=== PATIENT | female | born 1970 | race Caucasian/White ===

== ENCOUNTER 2017-06-02 12:40 | Emergency (ER) | payer SELFPAY ==
--- NOTE | 2017-06-02 14:52 | RAD ---
AP CHEST: Indication: Cough. Comparison: None. FINDINGS: The lungs are clear. Cardiomediastinal silhouette is normal. No acute osseous abnormality is evident . IMPRESSION: No acute cardiopulmonary abnormality. POS: [facility]
== END 2017-06-02 15:04 | disposition home or self-care (01) ==
LOC: ERS 12:40
DX: J42 Unspecified chronic bronchitis (principal); J32.9 Chronic sinusitis, unspecified; I10 Essential (primary) hypertension; F41.9 Anxiety disorder, unspecified; Z79.899 Other long term (current) drug therapy
CPT/HCPCS: 71010

== ENCOUNTER 2017-08-02 13:20 | Inpatient (IN) | payer SELFPAY ==
[2017-08-02 14:11] LABS: Hematocrit 32.2 % (36.0-47.0); Mean Platelet Volume 7.1 fL (7.4-10.4); Red Blood Cell (RBC) Count 3.48 mill/uL (4.20-5.40); White Blood Cell (WBC) Count 14.2 thou/uL (4.8-10.8)
[2017-08-02 14:13] LABS: Prothrombin Time 15.4 SEC (12.0-14.7)
[2017-08-02] MEDS ORDERED: Fentanyl 100 MCG/2 ML VIAL ONE (14:22)
[2017-08-02 14:24] LABS: Lactic Acid - Sepsis 2.5 mmol/L (0.5-2.2)
[2017-08-02 14:27] LABS: ALT (SGPT) 137 U/L (8-55); AST (SGOT) 144 U/L (5-34); Alkaline Phosphatase 214 U/L (40-150); Anion Gap 21 mmol/L (10-20); BUN (Urea Nitrogen) 80 mg/dL (7.0-18.7); Bilirubin, Total 0.7 mg/dL (0.2-1.2); CK (CPK) 28 U/L (29-168); Calc. Creatinine Clearance 0 mL/min (70-130); Calcium 7.7 mg/dL (7.8-10.44); Carbon Dioxide 23 mmol/L (22-29); Chloride 94 mmol/L (98-107); Estimated GFR-MDRD 10; Globulin 4.3 g/dL (2.4-3.5); Lipase 23 U/L (8-78); Magnesium 1.3 mg/dL (1.6-2.6); Protein, Total 7.4 g/dL (6.0-8.3)
[2017-08-02 14:31] LABS: Troponin I 0.014 ng/mL (< 0.028)
[2017-08-02 14:31] LABS: Sodium 139 mmol/L (135-148)
[2017-08-02 14:32] LABS: Mode NRBM; Modified Allen's Test POSITIVE
[2017-08-02] MEDS ORDERED: Potassium Chloride 20 MEQ/100 ML PREMIX BAG ONE (14:38)
[2017-08-02] MEDS ORDERED: Potassium Chloride 20 MEQ TAB ONE (14:38)
[2017-08-02 14:39] LABS: Band 19 % (5-11); Hypochromia SLIGHT = 6-15 cells (100X) (0-5/hpf); Metamyelocyte 1 % (0-0); Neutrophil 69 % (42-75); Toxic Granulation SLIGHT; Vacuoles SLIGHT
[2017-08-02] MEDS ORDERED: EPINEPHrine 1 MG/10 ML Abboject SYRINGE ONE (14:41)
[2017-08-02] MEDS ORDERED: Heparin 10,000 UNITS/ 10 ML VIAL SLOW IVP SCH (15:15)
[2017-08-02] MEDS ORDERED: Heparin 25,000 units/D5W 500 ML IV SCH (15:15)
[2017-08-02] MEDS ORDERED: Heparin 25,000 units/D5W 500 ML ONE (15:29)
[2017-08-02 15:37] LABS: Bilirubin Negative (Negative); Blood, Urine Large (Negative); Glucose, Urine (Dipstick) Negative (Negative); Ketone, Urine Negative (Negative); Nitrite Negative (Negative); Protein, Urine (Dipstick) 100 mg/dL (Neg-Trace)
[2017-08-02 15:39] LABS: Bacteria/HPF 4+ HPF (None Seen); Hyaline Casts/LPF 0-3 HYALINE CAST LPF (0-3 Hyaline); RBC/HPF GREATER THAN 50-TNTC HPF (0-3); WBC/HPF 21-50 HPF (0-3)
--- NOTE | 2017-08-02 15:39 | RAD ---
FRONTAL VIEW CHEST: Date: 08/02/17 COMPARISON: 06/02/17. INDICATION: Shortness of breath. FINDINGS: There is shallow depth of inspiration with bibasilar pleural and parenchymal densities. Cardiomediast inal silhouette is accentuated. No obvious pneumothorax. IMPRESSION: Bibasilar densities indicating pleural fluid with adjacent atelectasis and/or pneumonia. Recommend fo llow-up to resolution. POS: [facility]
[2017-08-02] MEDS ORDERED: Norepinephrine 8 MG/0.9% NS 250 ML ONE (15:42)
--- NOTE | 2017-08-02 15:52 | RAD ---
FRONTAL VIEW CHEST: Date: 08/02/17 COMPARISON: Earlier same date. CLINICAL HISTORY: Central line placement. FINDINGS: Placement of right internal jugulovenous catheter with tip overlying the right atrium. No obvious pos tprocedural pneumothorax is seen. Lungs are hypoinflated with bibasilar patchy densities. Cardiomedia stinal silhouette and pulmonary vasculature are prominent. IMPRESSION: 1. Placement of right IJ catheter with tip overlying right atrium. 2. Patchy bibasilar densities. 3. No postprocedural pneumothorax visualized. POS: [facility]
[2017-08-02] MEDS ORDERED: cefTRIAXone\\ROCEPHIN 2 GM in Sodium Chloride 0.9% 100 ML IVPB SCH ×2 (16:00→16:15)
[2017-08-02] MEDS ORDERED: Azithromycin 500 MG VIAL ONE (16:11)
[2017-08-02] MEDS ORDERED: Norepinephrine 8 MG/250 ML BAG IVPB PRN (16:12)
[2017-08-02] MEDS ORDERED: Azithromycin 500 MG in Sodium Chloride 0.9% 250 ML 250 ML IVPB SCH (16:15)
[2017-08-02] MEDS ORDERED: Potassium Chloride 20 MEQ in Sodium Chloride 0.9% 250 ML 250 ML IVPB SCH (16:15)
[2017-08-02 17:40] LABS: Troponin I 0.011 ng/mL (< 0.028)
[2017-08-02] MEDS ORDERED: Ondansetron ODT 4 MG TAB SL PRN (17:48)
[2017-08-02] MEDS ORDERED: Sodium Chloride 0.9% 1,000 ML IV SCH (17:48)
[2017-08-02] MEDS ORDERED: Ondansetron HCl/PF 4 MG/2 ML Vial IVP PRN ×2 (17:48→17:55)
[2017-08-02] MEDS ORDERED: Acetaminophen 325 MG TAB PO PRN (17:48)
[2017-08-02] MEDS ORDERED: Benzonatate 100 MG CAP PO PRN (17:55)
[2017-08-02] MEDS ORDERED: Diabetic Tussin 200 MG/10 ML UDCUP PO PRN (17:55)
[2017-08-02] MEDS ORDERED: Ondansetron ODT 4 MG TAB PO PRN (17:55)
[2017-08-02] MEDS: Sodium Chloride 0.9% 1,000 ML IV SCH (18:43)
[2017-08-02] MEDS ORDERED: FLU VACC QS2017-18 36 mo. & older 0.5 ML SYRINGE IM ONE (18:45)
--- NOTE | 2017-08-02 19:00 | HP ---
DATE OF ADMISSION: 08/02/2017 PRIMARY CARE PROVIDER: Tamara huitron. CHIEF COMPLAINT: Cough, shortness of breath and falls. HISTORY OF PRESENT ILLNESS: This is a 47-year-old female who presented to [facility] Emergency Department complaining of approximately 2-3 day history of increasing rose rtness of breath, subjective fever, general weakness, and falls x2. The patient states that her symp toms began in last 72 hours, but was taking ibuprofen for pain relief and fever. The patient admitte d to shortness of breath and cough that was nonproductive. The patient denied any hemoptysis, travel history or family members with similar symptoms. 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 The patient denies receiving influenza or pneumonia vaccinations. The patient states she has had general weakness, decreased oral intake, but denied vomiting or diarrhea. The patient i s accompanied by her parents, who corroborated patient's story. The patient apparently lives with he r parents at which point they noticed her falling on two occasions, striking her head after falling o ut of the bed and falling in the bathroom. The patient was not noted with loss of consciousness, but complained of pain at the site where she struck her head. The patient denies any unilateral weaknes s, difficulty with speech or swallowing. In the emergency room, patient underwent extensive evaluati on including chest imaging showing questionable bibasilar infiltrates concerning for pneumonia. The patient was also noted with hypotension and concern for sepsis with elevated respiratory rate, hypoxe chris and infiltrates concerning for pneumonia. The patient received aggressive intervention including Rocephin, Zithromax, intravenous normal saline x3 liters in addition to vasopressor support with Lev ophed. The patient also received bronchodilator therapy, IV fentanyl, and potassium supplementation. The patient also underwent general evaluation after concern for potential pulmonary embolus and rec eived heparin infusion. The patient denies any lower extremity asymmetric swelling, travel history o r prominent chest pain. The patient was transferred to the Critical Care Unit for further sepsis wor kup and treatment. PAST MEDICAL HISTORY: 1. Hypertension, on antihypertensive regimen. 2. Anxiety. PAST SURGICAL HISTORY: 1. Status post endometrial ablation. 2. Status post tonsillectomy. CURRENT MEDICATIONS: Lisinopril/HCTZ 20/25 mg 1 tab p.o. daily and ibuprofen daily. ALLERGIES: No known drug allergies. FAMILY HISTORY: Positive for hypertension. SOCIAL HISTORY: Patient resides in the [place], [place] area with her parents. Works in a daycare sett ing. No current alcohol, tobacco or illicit drug use. REVIEW OF SYSTEMS: The following complete review of systems was negative, unless otherwise mentioned in the HPI or below: Constitutional: Weight loss or gain, ability to conduct usual activities. Skin: Rash, itching. Eyes: Double vision, pain. ENT/Mouth: Nose bleeding, neck stiffness, pain, tenderness. Cardiovascular: Palpitations, dyspnea on exertion, orthopnea. Respiratory: Shortness of breath, wheezing, cough, hemoptysis, fever or night sweats. Gastrointestinal: Poor appetite, abdominal pain, heartburn, nausea, vomiting, constipation, or diarr hea. Genitourinary: Urgency, frequency, dysuria, nocturia. Musculoskeletal: Pain, swelling. Neurologic/Psychiatric: Anxiety, depression. Allergy/Immunologic: Skin rash, bleeding tendency. Otherwise negative except as stated per HPI. PHYSICAL EXAMINATION: VITAL SIGNS: From the emergency room, blood pressure 88/56, pulse 102, respiratory rate 35, temperat ure 97.6 degrees Fahrenheit, O2 saturation 87% on room air. GENERAL APPEARANCE: This is a 47-year-old female, anxious appearing on current BiPAP nonin vasive mechanical ventilation. HEENT: Pupils are equal, round, and reactive to light and accommodation. Extraocular muscles are in tact. No scleral icterus, no conjunctival injection. Nares patent. OP is clear. Oral mucosa dry. NECK: Supple, no cervical adenopathy, no thyromegaly, no carotid bruits, no JVD appreciated. Cervic al spine with full active and passive range of motion. No meningeal signs appreciated. CHEST: Diminished breath sounds in the bases bilaterally. CARDIOVASCULAR: S1 and S2 with tachycardia. ABDOMEN: Obese, soft, nontender, nondistended. Bowel sounds are positive in all four quadrants. Th ere is no hepatosplenomegaly, no abdominal bruits, no rebound or guarding appreciated. Landmarks are difficult to palpate. EXTREMITIES: Warm and dry with fair turgor. Nonpitting edema bilaterally. Pulses palpable distally at the dorsalis pedis, posterior tibial, and popliteal arteries bilaterally. Capillary refill less than 2 seconds. NEUROLOGIC: Cranial nerves II-XII are grossly intact. No focal or lateralizing signs are appreciate d. PERTINENT LABORATORY DATA AND X-RAY FINDINGS: Sodium 135, potassium 2.9, chloride 94, CO2 23, anion gap 21, BUN 80, creatinine 4.89, estimated GFR of 10, glucose 88. Lactic acid level 2.5, calcium 7.7 , magnesium 1.3, AST 144, ALT 137, total bilirubin 0.7, alkaline phosphatase 214, total CK of 28. Tr oponin negative x2. BNP 214. Albumin 3.1, lipase 23. CBC showed white blood cell count of 14.2, he moglobin 11, hematocrit 32, platelet count 285 with 69% neutrophils, 19% bands. PT 15.4, INR 1.2. A BG dated 08/02/2017 at 14:30 p.m. showed pH 7.35, pCO2 of 38.7, pO2 19.4, bicarbonate 20.8, O2 satura tion 99% on 100% FiO2 by nonrebreather. Urinalysis showed positive blood, moderate leukocyte esteras e with greater than 50 to too numerous to count rbc's per high power field and 21-50 wbc's per high p ower field, 4+ bacteria noted. Portable chest x-ray dated 08/02/2017 showed bibasilar pleural fluid with atelectasis/questionable pneumonia. EKG dated 08/02/2017 by my interpretation shows sinus mecha nism with heart rates in the 90s. Normal R-wave progression noted in the precordial leads. Normal a xis. T-wave inversion noted in lead III and AVF. ASSESSMENT AND PLAN: 1. Severe sepsis. Patient will be admitted to the critical care unit. We will continue general sep sis protocol. IV fluids with normal saline at 125 mL per hour. Continue empiric coverage with cefep karen 1 gram IV q.12 hours with Levaquin 750 mg IV q.24 hours. Patient received Rocephin and Zithromax in the emergency room. Suspected pulmonic source currently; however, we will await final urine cult ure results. Continue serial lactate assessment. We will consult Critical Care Service per protocol . 2. Acute hypoxemic respiratory failure. Suspect secondarily to underlying pneumonia and #1. Initia lly treated with 100% FiO2 with nonrebreather, transitioning to bilevel positive airway pressure kim nvasive mechanical ventilation. We will attempt to deescalate oxygen supplementation with nasal светлана teddy at 3-5 liters per nasal cannula. Continue pulmonary supportive measures. DuoNebs q.4 hours p.r. n. 4. Acute kidney injury. Suspect multifactorial given volume depletion sepsis syndrome, ongoing dimple nopril, and NSAID use. We will continue aggressive IV fluid hydration. Avoid nephrotoxic agents and contrast media and repeat creatinine in the a.m. 5. Hypokalemia. Continue potassium supplementation and monitor closely. Repeat potassium level in the a.m. 6. Transaminitis secondary to septic shock. Repeat LFTs in the a.m. Anticipate resolution with andrea atment of underlying sepsis. 7. Chronic normocytic anemia. No current evidence to suggest acute blood loss. Repeat CBC in the a .m. 8. Prophylaxis. Sequential compression devices while in bed. Pepcid 20 mg IV q.12 hours. Update i nfluenza and pneumonia vaccination prior to discharge. 9. Code status is FULL. Surrogate medical decision maker is the patient's mother.
[2017-08-02] MEDS: Lorazepam 1 MG TAB PO PRN (19:40)
[2017-08-02] MEDS: Cefepime 1 GM, Admixture Fee 1 EACH in Sterile Water 10 ML SLOW IVP SCH (19:40)
[2017-08-02] MEDS ORDERED: Magnesium 2 GM/NS 0.9% 50 ML 2 GM in Premix Bag 1 BAG IVPB SCH (19:45)
[2017-08-02] MEDS ORDERED: Potassium Chloride 40 MEQ in Premix Bag 1 BAG IVPB SCH (19:45)
[2017-08-02] MEDS ORDERED: diphenhydrAMINE 50 MG/ML VIAL IVP SCH (20:30)
[2017-08-02] MEDS ORDERED: Metoclopramide HCl 10 MG/2 ML VIAL IVP SCH (20:30)
[2017-08-02] MEDS ORDERED: Cefepime 2 GM VIAL IVPB SCH (21:00)
[2017-08-02] MEDS: Famotidine/PF 20 mg/2ml Vial SLOW IVP SCH (21:00)
[2017-08-02] MEDS: Oseltamivir 75 MG CAP PO SCH (21:09)
--- NOTE | 2017-08-02 21:39 | ULT ---
RENAL ULTRASOUND 08/02/17 COMPARISON: None. HISTORY: Acute kidney injury. TECHNIQUE: Multiplanar trevino scale sonographic imaging of the kidneys and urinary bladder obtained. FINDINGS: Left kidney measures 11.7 5.6 x 6.3 cm and right kidney measures 12.6 x 6.8 x 6.9 cm. Urinary bladde r is empty and contains a Medina catheter. No renal mass, hydronephrosis, or renal stone seen on the l eft. There is a vague hypoechoic lesion in the mid pole of the right kidney measuring 2.7 x 1.7 cm, which may represent a cyst but is incompletely characterized on this exam secondary to body habitus. IMPRESSION: No hydronephrosis noted on either side. Question right renal cyst, incompletely assessed. Thus, a fol lowup ultrasound in 3-6 months is advised to document stability. POS: [facility]
--- NOTE | 2017-08-03 00:32 | CON ---
DATE OF SERVICE: 08/02/2017 SERVICE: Pulmonary Medicine. REASON FOR CONSULTATION: ICU patient. HISTORY OF PRESENT ILLNESS: The patient is a very pleasant 47-year-old white female. For the past 3 months, she has had a cough. She brings up green sputum. About 2 months ago, she went in for evalu ation. She was put on some antibiotic. Her green sputum cleared for a couple of days. That being s aid, she had recurrence of that. This was smoldering along until about 2 days prior to admission whe n she started having onset of a headache, myalgia, arthralgia, fevers, and the cough got worse. She got increasingly short-winded. She presented to the emergency department with low blood pressure. S he got 4 liters of fluid and had persistently low blood pressures. As such, she ended up getting sta rted on a little bit Levophed after central line was placed. At this point, she started to feel sterling le bit better. She was placed on BiPAP transiently, but did not tolerate this therapy in any form an d is currently on hold. PAST MEDICAL HISTORY: 1. Hypertension. 2. Anxiety disorder. PAST SURGICAL HISTORY: 1. Endometrial ablation. 2. Tonsillectomy. ALLERGIES: No known drug allergies. MEDICATIONS: List of her inpatient medications were reviewed. Multiple of updates were made. FAMILY HISTORY: Noncontributory. SOCIAL HISTORY: The patient lives in [place], [place] with her parents. She works in a daycare. She h as no alcohol, tobacco or illicit drug usage significant. She has no exposure to chemicals, dust, as bestos or tuberculosis. REVIEW OF SYSTEMS: General, head, ears, eyes, nose, throat, cardiovascular, respiratory, GI, , mus culoskeletal, neurologic and skin is negative except as mentioned in the HPI. PHYSICAL EXAMINATION: VITAL SIGNS: Afebrile, pulse 102, blood pressure 108/68, respirations 31, saturation 100% on room ai r. GENERAL: The patient is awake and alert, in no apparent distress. LUNGS: Decent air entry. Rhonchi are present. I hear some dependent crackles. No prolonged expira tory phase or wheezing is appreciated. HEART: Normal rate, regular. ABDOMEN: Soft, nontender, nondistended, bowel sounds positive. MUSCULOSKELETAL: No cyanosis or clubbing. There is 1+ pitting in the bilateral lower extremities. NEUROLOGIC: Grossly nonfocal. LABORATORY DATA: WBC 14.2, hemoglobin 10.6, platelets 285,000. Band counts are 19%. INR 1.2. A pH 7.35, pCO2 38, pO2 194 on a nonrebreather at that time. Potassium 2.9. Creatinine 4.89, BUN 80. L actate is up trending to 4.2. BNP 213. Cardiac enzymes are negative x2 and actually down trending. AST and ALT are slightly elevated. Alkaline phosphatase is 214. Urine red blood cells and white bl ood cells are elevated. There is moderate leukocyte esterase, but negative nitrites. There is mild proteinuria. Influenza A and B is unremarkable. IMAGING: Chest x-ray demonstrates a right IJ central venous catheter is in good position. Cardiac s ilhouette is likely normal. Lung volumes are fairly small. There is possible left pleural parenchym al abnormality. There is also a plate of atelectasis in the left mid lung zone. ASSESSMENT: 1. Acute hypoxic respiratory failure. 2. Septic shock. 3. Community-acquired pneumonia, possible. 4. Viral prodrome. 5. Acute kidney injury. 6. Hypokalemia. 7. Elevated liver function studies. 8. Urinary tract infection, possible. PLAN: We will get an ultrasound of the kidneys. Continue Levophed as tolerated. Empiric antibiotic s will be continued. The choice of cefepime and Levaquin should cover most of our organisms that we need to at this time. I am going to discontinue anything designed to suppress cough. Echocardiogram will be performed. We will place Medina catheter Pulmonary Critical Care will continue to follow ve ry closely during this hospital stay as the patient is very likely get worse before improving. Potas sium will be aggressively replaced.
[2017-08-03] MEDS: Acetaminophen 500 MG TAB PO PRN (01:15)
[2017-08-03] MEDS: Sodium Chloride 0.9% 1,000 ML IV SCH ×3 (01:16→17:36)
[2017-08-03] MEDS: Lorazepam 1 MG TAB PO PRN (03:26)
[2017-08-03 05:23] LABS: ALT (SGPT) 264 U/L (8-55); AST (SGOT) 292 U/L (5-34); Alkaline Phosphatase 223 U/L (40-150); Anion Gap 19 mmol/L (10-20); BUN (Urea Nitrogen) 69 mg/dL (7.0-18.7); Bilirubin, Total 1.2 mg/dL (0.2-1.2); Calc. Creatinine Clearance 30 mL/min (70-130); Calcium 6.8 mg/dL (7.8-10.44); Carbon Dioxide 17 mmol/L (22-29); Chloride 107 mmol/L (98-107); Estimated GFR-MDRD 15; Globulin 3.7 g/dL (2.4-3.5); Magnesium 1.6 mg/dL (1.6-2.6); Protein, Total 6.4 g/dL (6.0-8.3)
[2017-08-03 05:24] LABS: ALT (SGPT) 266 U/L (8-55); AST (SGOT) 294 U/L (5-34); Alkaline Phosphatase 231 U/L (40-150); Bilirubin, Total 1.2 mg/dL (0.2-1.2); Protein, Total 6.5 g/dL (6.0-8.3)
[2017-08-03 06:23] LABS: Band 18 % (5-11); Hematocrit 29.1 % (36.0-47.0); Mean Platelet Volume 6.8 fL (7.4-10.4); Metamyelocyte 1 % (0-0); Neutrophil 76 % (42-75); Red Blood Cell (RBC) Count 3.08 mill/uL (4.20-5.40); White Blood Cell (WBC) Count 15.2 thou/uL (4.8-10.8)
[2017-08-03] MEDS ORDERED: Midazolam HCl 2 mg/2 ml Vial ONE (08:36)
[2017-08-03] MEDS ORDERED: Propofol 1,000 MG/100 ML VIAL IV ONE (08:48)
[2017-08-03] MEDS ORDERED: Lorazepam 2 MG/ML VIAL ONE (09:04)
--- NOTE | 2017-08-03 09:15 | RAD ---
1 VIEW CHEST: Date: 08/03/17 COMPARISON: 08/02/17. HISTORY: Respiratory distress. Endotracheal tube placement. COMPARISON: None. FINDINGS: Endotracheal tube terminates less than 1.0 cm above the gogo. Retraction is recommended. Nasogastri c tube extends beyond the diaphragm. Distal tip is not seen. Stable right-sided catheter. Parenchymal change in lung bases noted. Atelectasis is suspected. Superimposed infiltrate cannot be excluded. No pneumothorax. IMPRESSION: Endotracheal tube as above. Retraction is recommended. CODE T. POS: [facility]
[2017-08-03] MEDS: Cefepime 1 GM, Admixture Fee 1 EACH in Sterile Water 10 ML SLOW IVP SCH (10:02)
[2017-08-03] MEDS ORDERED: Lacri-Lube Opth Oint 3.5 GM TUBE EA EYE PRN (10:03)
[2017-08-03] MEDS ORDERED: Sedation Protocol FS SCH (10:03)
[2017-08-03] MEDS ORDERED: Magnesium Sulfate 2 GM in Sodium Chloride 0.9% 100 ML IVPB SCH (10:15)
[2017-08-03] MEDS ORDERED: Magnesium 2 GM/NS 0.9% 50 ML 2 GM in Premix Bag 1 BAG IVPB SCH (10:30)
[2017-08-03] MEDS ORDERED: Lorazepam 2 MG/ML VIAL SLOW IVP PRN (10:32)
[2017-08-03] MEDS ORDERED: DISCONTINUE PREVIOUS NARCOTIC PAIN MEDICATIONS AND BENZODIAZEPINES FS SCH (10:32)
[2017-08-03] MEDS ORDERED: Morphine 4 MG/ML VIAL IV PRN (10:34)
--- NOTE | 2017-08-03 10:36 | PRG ---
DATE OF SERVICE: 08/03/2017 SERVICE: Pulmonary Medicine. INTERVAL HISTORY: The patient did poorly overnight. She had increasing work of breathing. She has an acidosis. She is supposed to be compensating for that, but based on ABG this morning, she was not . She had visible respiratory distress. She is taking very small breaths and had one-word dyspnea. PHYSICAL EXAMINATION: VITAL SIGNS: Afebrile with T-max 99.2, pulse 90, blood pressure 98/55, respirations 19, saturation 9 0% on 40% FiO2 and PEEP of 5. HEENT: Normocephalic, atraumatic. Sclerae are white. Conjunctivae pink. Oral and nasal mucosa is dry. HEART: Normal rate, regular. ABDOMEN: Soft, nontender, and nondistended. Bowel sounds are soft. Distended. Bowel sounds are hy poactive. GENITOURINARY: Medina catheter in place. NEUROLOGIC: Grossly nonfocal. LABORATORY DATA: WBC 15.2, hemoglobin 9.3, and platelets 201,000. Neutrophil count is 76% with 18% bands. Band count is roughly stable. INR 1.2. A pH 7.35, pCO2 39, pO2 194 on a nonrebreather at th at time. AST and ALT are roughly stable, alkaline phosphatase is stable at 231. Lactate is clearing to 2.5. Cortisol level is 23. Lipase was previously unremarkable. Cardiac enzymes negative x1. C reatinine down trending to 3.26. BUN 69. Anion gap is 19 and slowly improving, bicarbonate 17. Devon robiology includes urine culture is growing E. coli, blood cultures x2 are negative to date. Influen za A and B is negative, but respiratory virus panel is currently pending. IMAGIN. Ultrasound of the kidneys demonstrates no evidence for hydronephrosis. There is a question of a renal cyst. 2. Chest x-ray demonstrates interval intubation of the patient. Endotracheal tube was directed towa rds the right mainstem bronchus. This has subsequently been retracted. Small lung volumes are evide nt. There is a plate of atelectasis and pleural parenchymal opacification in the left lower lobe. T he right side has a possible effusion there. Right-sided IJ is in good position. An enteric cathete r courses well below the level of the diaphragm. ASSESSMENT: 1. Acute hypoxic respiratory failure. 2. Septic shock. 3. Community-acquired pneumonia. 4. Viral prodrome. 5. Acute kidney injury. 6. Elevated liver function studies. 7. Urinary tract infection secondary to Escherichia coli. PLAN: We will continue our empiric antibiotics directed at lung and pathology. The patient is fa iling to compensate for metabolic acidosis. As such, I will be intubating her. She has a very prolo nged expiratory phase, so we will start her on some nebulized medications and steroids. Her kidney i njury and end-organ damage is starting to clear. As such, I am hopeful that we are going to make a f ull recovery. CRITICAL CARE TIME: 45 minutes, unbundled from procedures.
[2017-08-03] MEDS: Oseltamivir 75 MG CAP PO SCH ×2 (10:44→20:59)
[2017-08-03] MEDS: Norepinephrine 8 MG/0.9% NS 250 ML IVPB SCH ×2 (10:44→23:53)
[2017-08-03] MEDS: Propofol 1,000 MG/100 ML VIAL IV PRN ×4 (11:46→22:37)
[2017-08-03 12:15] LABS: Oxyhemoglobin 93.8 % (94.0-97.0); Sodium 142 mmol/L (135-148)
[2017-08-03 12:16] LABS: Mode 3LNC; Modified Allen's Test POSITIVE
[2017-08-03 13:11] LABS: Oxyhemoglobin 92.6 % (94.0-97.0); Sodium 143 mmol/L (135-148); Vent YES
[2017-08-03 13:17] LABS: Mechanical Tidal Volume 430 ml; Pressure Support 19 cmH2O
[2017-08-03 13:18] LABS: Mode SIMV/PSV
[2017-08-03] MEDS: Fentanyl 20 MCG/ML 250 ML IVPB SCH (14:01)
--- NOTE | 2017-08-03 15:27 | PDOC.PN ---
- Subjective Encounter Start Date: 08/03/17 Encounter Start Time: 15:25 Subjective: f/u for severe sepsis with shock and acute resp failure now on mech vent. -: Intubated this am and requiring heavy sedation. Receiving Cefepime and -: Levaquin. - Objective Resuscitation Status: Resuscitation Status FULL:Full Resuscitation Vital Signs & Weight: Vital Signs (12 hours) Temp Pulse Resp BP Pulse Ox 08/03/17 14:00 23 H 08/03/17 12:30 87 94/56 L 08/03/17 12:00 99.0 F 23 H 92 L 08/03/17 10:05 24 H 08/03/17 10:00 24 H 08/03/17 07:39 99.2 F 93 37 H 94 L 08/03/17 07:00 99.2 F 08/03/17 04:00 98.7 F Weight Weight 185 lb 3.013 oz Most Recent Monitor Data Heart Rate from ECG 93 NIBP 91/50 NIBP BP-Mean 60 Respiration from ECG 22 SpO2 94 I&O: 08/02/17 08/03/17 08/04/17 06:59 06:59 06:59 Intake Total 1852 1521 Output Total 2290 1060 Balance -438 461 Result Diagrams: 08/03/17 04:30 08/03/17 04:30 Additional Labs: Microbiology 08/02/17 16:23 Nasal swab Influenza Types A,B Direct EIA - Final 08/02/17 16:18 Venous blood - Right Hand Blood Culture - Preliminary Specimen has been received and culture in progress. No Growth to date. 08/02/17 14:48 Urine clean catch Urine Culture - Preliminary Escherichia coli 08/02/17 13:45 Venous blood - Right Arm Blood Culture - Preliminary Specimen has been received and culture in progress. No Growth to date. Laboratory Tests 08/02/17 08/02/17 08/03/17 13:45 17:49 04:30 Hgb 10.6 L Neutrophils % (Manual) 69 Band Neuts % (Manual) 19 H Lactic Acid 4.2 H* AST 292 H ALT 264 H Alkaline Phosphatase 223 H Cortisol 08/03/17 08/03/17 08/03/17 04:30 04:30 04:30 Hgb Neutrophils % (Manual) 76 H Band Neuts % (Manual) 18 H Lactic Acid 2.5 H AST ALT Alkaline Phosphatase Cortisol 23.50 Radiology Reviewed by me: Yes (PCXR - no acute infiltrate, ETT in place) EKG Reviewed by me: Yes (Tele - SR in 's) Phys Exam - Physical Examination sedate on mech ventilation ETT in place HEENT: oral pharynx no lesions Neck: no JVD, supple diminished in bases Cardiovascular: RRR Gastrointestinal: soft, non-tender, no distention, positive bowel sounds Musculoskeletal: pulses present, edema present Skin: normal turgor, cap refill <2 seconds Deviation from normal: Medina with pal urine Dx/Plan (1) Severe sepsis with acute organ dysfunction Code(s): A41.9 - SEPSIS, UNSPECIFIED ORGANISM; R65.20 - SEVERE SEPSIS WITHOUT SEPTIC SHOCK Status: Acute Comment: Suspected PNA and Ucx showing E. coli, continue Cefepime and Levaquin, sepsis protocol, await final cx results (2) Acute respiratory failure with hypoxia Code(s): J96.01 - ACUTE RESPIRATORY FAILURE WITH HYPOXIA Status: Acute Comment: Requiring mech vent, wean as clinically indicated, Duonebs, Solumedrol (3) RENITA (acute kidney injury) Code(s): N17.9 - ACUTE KIDNEY FAILURE, UNSPECIFIED Status: Acute (4) Transaminitis Code(s): R74.0 - NONSPEC ELEV OF LEVELS OF TRANSAMNS & LACTIC ACID DEHYDRGNSE Status: Acute Comment: Suspect due to septic shock, follow LFT trend (5) Lactic acidosis Code(s): E87.2 - ACIDOSIS Status: Acute Comment: Slow improvement with sepsis mgmt, continue tx as outlined above (6) Normocytic anemia Code(s): D64.9 - ANEMIA, UNSPECIFIED Status: Chronic Comment: Stable currently, continue serial H/H monitoring - Plan plan discussed w/ family, continue antibiotics, social security specialist, respiratory therapy, DVT proph w/SCDs Continue SIMV and wean as clinically indicated -: Continue Cefepime and Levaquin -: CCU sedation protocol -: Continue Solumedrol 40mg IV daily -: AM lab: CMP, CBC, ABG * PCXR in am
[2017-08-03] MEDS: Famotidine/PF 20 mg/2ml Vial SLOW IVP SCH (20:59)
[2017-08-03] MEDS ORDERED: Sodium Chloride 0.9% 1,000 ML IV SCH (22:00)
--- NOTE | 2017-08-03 23:50 | OP ---
DATE OF SERVICE: 08/03/2017 SERVICE: Pulmonary Medicine. PROCEDURE: Emergent endotracheal intubation. CONSENT: Procedure was performed emergently because of clinical deterioration and respiratory failur e. STAFF PHYSICIAN: Angel Luis Canchola M.D. MEDICATIONS USED: 1. Versed 2 mg IV push. 2. Etomidate 40 mg IV push. PREPROCEDURE DIAGNOSES: 1. Septic shock. 2. Respiratory failure. POSTPROCEDURE DIAGNOSES: 1. Septic shock. 2. Respiratory failure. DESCRIPTION OF PROCEDURE: Vital sign monitoring was accomplished by noninvasive hemodynamic monitori ng, pulsoximetry, and telemetry. In the supine position, the patient was preoxygenated with bag valve mask ventilation and maintain wi th saturations of 100%. Following induction of anesthesia, a #3 GlideScope was inserted through the mouth offering clear identification of the posterior oropharynx and laryngeal structures with a grade I view. An endotracheal tube was visualized passing through the vocal cords. Placement was confirm ed by condensation in the endotracheal tube, colorimetric capnography, and by axillary chest ausculta tion. The endotracheal tube was secured at 22 cm, measured at the teeth. The patient was placed on mechanical ventilation with good return of volumes. Post-procedure x-ray revealed that the endotrach eal tube was just barely deep directed towards the right main stem bronchus. It was subsequently ret racted by 1 to 2 cm. ESTIMATED BLOOD LOSS: None. COMPLICATIONS: None.
[2017-08-04] MEDS: Acetaminophen 500 MG TAB PO PRN ×2 (01:28→15:28)
[2017-08-04] MEDS: Sodium Chloride 0.9% 1,000 ML IV SCH (01:48)
[2017-08-04] MEDS: Propofol 1,000 MG/100 ML VIAL IV PRN ×2 (04:24→18:03)
[2017-08-04 04:42] LABS: Anion Gap 18 mmol/L (10-20); BUN (Urea Nitrogen) 61 mg/dL (7.0-18.7); Calc. Creatinine Clearance 28 mL/min (70-130); Carbon Dioxide 15 mmol/L (22-29); Chloride 113 mmol/L (98-107); Estimated GFR-MDRD 15
[2017-08-04 04:43] LABS: ALT (SGPT) 307 U/L (8-55); AST (SGOT) 404 U/L (5-34); Alkaline Phosphatase 241 U/L (40-150); Bilirubin, Direct 1.3 mg/dL (0.1-0.3); Bilirubin, Total 1.7 mg/dL (0.2-1.2); Protein, Total 6.1 g/dL (6.0-8.3)
[2017-08-04] MEDS ORDERED: Dextrose 5 % And 0.9 % NaCl 1,000 ML IV SCH (05:00)
[2017-08-04 05:01] LABS: Band 34 % (5-11); Dohle Bodies SLIGHT; Hematocrit 27.2 % (36.0-47.0); Mean Platelet Volume 6.7 fL (7.4-10.4); Metamyelocyte 6 % (0-0); Myelocyte 1 % (0-0); Neutrophil 52 % (42-75); Red Blood Cell (RBC) Count 2.84 mill/uL (4.20-5.40); White Blood Cell (WBC) Count 16.5 thou/uL (4.8-10.8)
[2017-08-04] MEDS ORDERED: Dextrose 5% in Water 1,000 ML IV PRN (05:01)
[2017-08-04] MEDS ORDERED: Dextrose 50% Abboject 50 ML SYRINGE IVP PRN (05:01)
[2017-08-04] MEDS ORDERED: Dextrose 50% Abboject 50 ML SYRINGE ONE (05:02)
[2017-08-04] MEDS: Oseltamivir 75 MG CAP PO SCH (08:40)
[2017-08-04] MEDS: Cefepime 1 GM, Admixture Fee 1 EACH in Sterile Water 10 ML SLOW IVP SCH (08:40)
[2017-08-04] MEDS ORDERED: Vasopressin 40 UNIT, Admixture Fee 1 EACH in Sodium Chloride 0.9% 100 ML IV SCH (09:45)
[2017-08-04] MEDS ORDERED: Sodium Bicarb 50 MEQ/50 ML Abboject 8.4% SYRINGE ONE ×2 (09:59→10:04)
[2017-08-04] MEDS: Sodium Bicarbonate 75 MEQ in Dextrose 5% in Water 1,000 ML IV SCH ×4 (10:50→21:15)
[2017-08-04] MEDS: Norepinephrine 8 MG/0.9% NS 250 ML IVPB SCH ×3 (10:54→21:55)
--- NOTE | 2017-08-04 11:25 | RAD ---
PORTABLE SUPINE FRONTAL CHEST RADIOGRAPH: 08/04/2017 HISTORY: Increasing oxygen requirements. Intubated patient. COMPARISON: 08/03/2017 FINDINGS: Stable nasogastric tube and right-sided vascular catheter. Endotracheal tube in place, terminating a t the level of the clavicular heads. Supine imaging limits assessment for pneumothorax. There is in creased linear density in the left lung base with probable left pleural fluid. There is dense opacit y in the region of the right middle and right lower lobe, suggesting volume loss/consolidation and pl eural fluid. Aeration has slightly worsened within the right lung base when compared to the prior ex am. IMPRESSION: 1. Lines and tubes as above. 2. Bibasilar pleural and parenchymal opacity, right greater than left, worsened as above. POS: [facility]
[2017-08-04 11:27] LABS: Anion Gap 15 mmol/L (10-20); BUN (Urea Nitrogen) 63 mg/dL (7.0-18.7); Calc. Creatinine Clearance 24 mL/min (70-130); Carbon Dioxide 19 mmol/L (22-29); Chloride 112 mmol/L (98-107); Estimated GFR-MDRD 13
[2017-08-04] MEDS ORDERED: Calcium Chloride 1 GM/10 ML Abboject SYRINGE ONE (12:50)
[2017-08-04] MEDS ORDERED: Calcium Chloride 1 GM/10 ML Abboject SYRINGE IVP SCH (13:30)
[2017-08-04 13:58] LABS: Mechanical Tidal Volume 430 ml; Modified Allen's Test NOT DONE; Pressure Support 10 cmH2O; Sodium 141 mmol/L (135-148); Vent YES
[2017-08-04 13:59] LABS: Mode SIMV.PSV
[2017-08-04] MEDS: Hydrocortisone Sod Succ/PF 100 mg/2 ml Vial IVP SCH ×3 (14:08→23:10)
[2017-08-04] MEDS ORDERED: Calcium Gluconate 4.6 MEQ in Sodium Chloride 0.9% 100 ML IVPB SCH (15:00)
--- NOTE | 2017-08-04 16:52 | PDOC.PN ---
- Subjective Encounter Start Date: 08/04/17 Encounter Start Time: 16:45 Subjective: f/u for sepsis, resp failure on mech vent. Nsg reports need for multiple -: pressors, poor UOP and hypotension. Improving currently. - Objective Resuscitation Status: Resuscitation Status FULL:Full Resuscitation Vital Signs & Weight: Vital Signs (12 hours) Temp Pulse Resp BP Pulse Ox 08/04/17 16:00 23 H 08/04/17 14:57 103 H 93/54 L 08/04/17 14:56 104 H 22 H 92 L 08/04/17 14:00 23 H 08/04/17 12:00 23 H 08/04/17 11:54 94 85/47 L 08/04/17 10:00 23 H 08/04/17 08:00 98.7 F 102 H 17 96 08/04/17 07:58 98.7 F 08/04/17 07:49 95 91/63 08/04/17 07:43 95 17 91 L 08/04/17 06:00 24 H Weight Admit Weight 187 lb Weight 187 lb 13.341 oz Most Recent Monitor Data Heart Rate from ECG 108 NIBP 131/62 NIBP BP-Mean 77 Respiration from ECG 22 SpO2 92 I&O: 08/03/17 08/04/17 08/05/17 06:59 06:59 06:59 Intake Total 1852 6097.5 560 Output Total 2290 2030 703 Balance -438 4067.5 -143 Result Diagrams: 08/04/17 03:45 08/04/17 10:48 Additional Labs: Accuchecks 08/04/17 05:40 POC Glucose 110 Microbiology 08/02/17 16:23 Nasal swab Influenza Types A,B Direct EIA - Final 08/02/17 16:18 Venous blood - Right Hand Blood Culture - Preliminary Specimen has been received and culture in progress. No Growth to date. 08/02/17 14:48 Urine clean catch Urine Culture - Preliminary Escherichia coli 08/02/17 13:45 Venous blood - Right Arm Blood Culture - Preliminary Specimen has been received and culture in progress. No Growth to date. Laboratory Tests 08/02/17 08/02/17 08/03/17 13:45 17:49 04:30 WBC Hgb 10.6 L Hct Neutrophils % (Manual) 69 Band Neuts % (Manual) 19 H Carbon Dioxide BUN Creatinine Lactic Acid 4.2 H* Direct Bilirubin AST 292 H ALT 264 H Alkaline Phosphatase 223 H TSH 3rd Generation Cortisol 08/03/17 08/03/17 08/03/17 04:30 04:30 04:30 WBC 15.2 H Hgb 9.3 L Hct 29.1 L Neutrophils % (Manual) 76 H Band Neuts % (Manual) 18 H Carbon Dioxide BUN Creatinine Lactic Acid 2.5 H Direct Bilirubin AST ALT Alkaline Phosphatase TSH 3rd Generation Cortisol 23.50 08/04/17 08/04/17 08/04/17 03:45 03:45 03:45 WBC Hgb Hct Neutrophils % (Manual) 52 Band Neuts % (Manual) 34 H Carbon Dioxide 15 L BUN 61 H Creatinine 3.31 H Lactic Acid Direct Bilirubin 1.3 H AST 404 H ALT 307 H Alkaline Phosphatase 241 H TSH 3rd Generation Cortisol 08/04/17 08/04/17 03:45 10:48 WBC Hgb Hct Neutrophils % (Manual) Band Neuts % (Manual) Carbon Dioxide BUN Creatinine Lactic Acid 2.2 Direct Bilirubin AST ALT Alkaline Phosphatase TSH 3rd Generation 2.6992 Cortisol Radiology Reviewed by me: Yes (PCXR - R>L basilar infiltrate) EKG Reviewed by me: Yes (Tele - Sinus tachycardia in 110's) Phys Exam - Physical Examination sedate, mech vent ETT in place Neck: no JVD, supple diminished in bases tachycardic Gastrointestinal: soft, non-tender, no distention, positive bowel sounds Musculoskeletal: pulses present, edema present sedate on mech ventilation Skin: normal turgor, cap refill <2 seconds Deviation from normal: [place] with pal urine Dx/Plan (1) Severe sepsis with acute organ dysfunction Code(s): A41.9 - SEPSIS, UNSPECIFIED ORGANISM; R65.20 - SEVERE SEPSIS WITHOUT SEPTIC SHOCK Status: Acute Comment: Suspected PNA and Ucx showing E. coli, continue Cefepime and Levaquin, sepsis protocol, await final cx results (2) Acute respiratory failure with hypoxia Code(s): J96.01 - ACUTE RESPIRATORY FAILURE WITH HYPOXIA Status: Acute Comment: Requiring mech vent, Duonebs, Solumedrol (3) RENITA (acute kidney injury) Code(s): N17.9 - ACUTE KIDNEY FAILURE, UNSPECIFIED Status: Acute Comment: slow improvement, avoid nephrotoxic meds and contrast media (4) Transaminitis Code(s): R74.0 - NONSPEC ELEV OF LEVELS OF TRANSAMNS & LACTIC ACID DEHYDRGNSE Status: Acute Comment: Suspect due to septic shock, follow LFT trend (5) Lactic acidosis Code(s): E87.2 - ACIDOSIS Status: Acute Comment: Slow improvement with sepsis mgmt, continue tx as outlined above (6) Normocytic anemia Code(s): D64.9 - ANEMIA, UNSPECIFIED Status: Chronic Comment: Stable currently, continue serial H/H monitoring (7) Hypotension Status: Acute Comment: Septic shock on Levophed and Vasopressin, IVF's, titrate vasopressors to response - Plan plan discussed w/ family, continue antibiotics, respiratory therapy, DVT proph w /SCDs Critical support with Vasopressors -: Continue Cefepime and Levaquin -: Avoid nephrotoxic meds and contrast media -: Sedation per protocol -: AM lab: BMP, CBC * PCXR in am
--- NOTE | 2017-08-04 17:30 | PRG ---
DATE OF SERVICE: 08/04/2017 SERVICE: Pulmonary Medicine. INTERVAL HISTORY: The patient did fairly poorly overnight. She had a drop in her blood pressure res ulting in anuria. Her mentation decreased. We were able to wean off of the propofol and fentanyl to fairly significant degree. This morning, we spent a significant amount of time at bedside trying to stabilize her. We added vasopressin, transduced CVP, placed arterial line, and made multiple medica tion adjustments in order to improve her vital profile. Our efforts were fruitful. She started anju ng urine towards the end of the morning. Otherwise, there were no overnight events. PHYSICAL EXAMINATION: VITAL SIGNS: Afebrile, pulse 90, blood pressure 135/74, respirations 21, saturation are 97% on 70% F iO2 and a PEEP of 13. HEENT: Normocephalic, atraumatic. Sclerae are white, conjunctivae pink. Oral and nasal mucosa is m oist without lesions. LUNGS: Bilateral rhonchi are present. There is good air entry and no prolonged expiratory phase. HEART: Normal rate and regular. ABDOMEN: Soft, nontender, nondistended. Bowel sounds positive. MUSCULOSKELETAL: No cyanosis or clubbing. No pitting in the bilateral lower extremities. NEUROLOGIC: Grossly nonfocal. LABORATORY DATA: WBC 16.5, hemoglobin 9.0, and platelets 192,000. Neutrophil count is 52%. There i s 34% bands which is up trending. INR 1.2. A pH 7.16 this morning with a pCO2 of 44, pO2 67. Basi c metabolic profile is significant for chloride of 112, bicarbonate improving to 19, anion gap improv ing to 15, creatinine 3.87, which is trending upward. Sodium 142. Lactate has trended downward to 2 .2. Calcium 6.0, it is persistently low. Urine is growing E. coli. This is almost pansensitive org anism. Blood cultures x2, respiratory virus panel, and influenza were all unremarkable. IMAGING: Chest x-ray demonstrates bibasilar pleural and parenchymal opacification, right greater renzo n left. ASSESSMENT: 1. Acute hypoxic respiratory failure. 2. Community-acquired pneumonia. 3. Septic shock. 4. Acute kidney injury. 5. Urinary tract infection secondary to Escherichia coli. DISCUSSION AND PLAN: Her CVP was elevated suggesting that she has been adequately resuscitated. We will add vasopressin and titrate Levophed to maintain MAP of greater than 65. We will watch her urin e output. Stress test and steroids have been initiated. There is no need for any blood transfusion at this time. We will continue the empiric antibiotics directed at community-acquired pathogens. Th e only thing we are not covering at this time is MRSA, or anaerobic pathogens, but truthfully we have no reason to cover those species. I will initiate a bicarbonate drip. An arterial line has been pl aced, so that we can more closely monitor blood pressure. Family was updated at bedside and they do appreciate that she was extraordinarily sick. My hope is that we can turn this around and thus will start having with some improvement in symptoms. CRITICAL CARE TIME: 105 minutes.
[2017-08-04] MEDS: SODIUM BICARBONATE IV SCH ×2 (21:14)
[2017-08-04] MEDS: DEXTROSE 5% IV SCH ×2 (21:14)
[2017-08-04] MEDS: WATER IV SCH ×2 (21:14)
[2017-08-05 04:55] LABS: Anion Gap 17 mmol/L (10-20); BUN (Urea Nitrogen) 59 mg/dL (7.0-18.7); Calc. Creatinine Clearance 29 mL/min (70-130); Calcium 6.7 mg/dL (7.8-10.44); Carbon Dioxide 20 mmol/L (22-29); Chloride 109 mmol/L (98-107); Estimated GFR-MDRD 16
[2017-08-05 05:27] LABS: Band 18 % (5-11); Hematocrit 27.3 % (36.0-47.0); Mean Platelet Volume 7.7 fL (7.4-10.4); Metamyelocyte 4 % (0-0); Myelocyte 2 % (0-0); Neutrophil 68 % (42-75); White Blood Cell (WBC) Count 27.9 thou/uL (4.8-10.8)
[2017-08-05] MEDS: Hydrocortisone Sod Succ/PF 100 mg/2 ml Vial IVP SCH ×3 (06:08→17:13)
[2017-08-05 07:30] LABS: Oxyhemoglobin 96.3 % (94.0-97.0); Sodium 143 mmol/L (135-148)
[2017-08-05 07:31] LABS: Modified Allen's Test NOT DONE; Vent YES
[2017-08-05 07:32] LABS: Mechanical Tidal Volume 430 ml; Mode AC
[2017-08-05] MEDS: Cefepime 1 GM, Admixture Fee 1 EACH in Sterile Water 10 ML SLOW IVP SCH (08:26)
[2017-08-05] MEDS: Famotidine/PF 20 mg/2ml Vial SLOW IVP SCH (08:26)
[2017-08-05] MEDS ORDERED: Oseltamivir 6 MG/ML ORAL SUSP PO SCH (09:00)
[2017-08-05] MEDS: SODIUM BICARBONATE IV SCH ×2 (09:07)
[2017-08-05] MEDS: WATER IV SCH ×2 (09:07)
[2017-08-05] MEDS: DEXTROSE 5% IV SCH ×2 (09:07)
[2017-08-05] MEDS: Norepinephrine 8 MG/0.9% NS 250 ML IVPB SCH (09:11)
[2017-08-05] MEDS: Fentanyl 20 MCG/ML 250 ML IVPB SCH (10:17)
--- NOTE | 2017-08-05 10:40 | OP ---
DATE OF PROCEDURE: 08/04/2017 SERVICE: Pulmonary Medicine. PROCEDURE PERFORMED: Right-sided radial arterial catheter placement. CONSENT: This was done under emergent conditions and consent was implied. STAFF PHYSICIAN: Angel Luis Canchola M.D. MEDICATIONS USED: None. INDICATION: Septic shock. DESCRIPTION OF PROCEDURE: Time out was performed by the procedure team and patient. The patient was positively identified using name and date of . The procedure site was marked. Vital signs mon itoring was accomplished by noninvasive hemodynamic monitoring, pulse oximetry, telemetry. With the patient in the supine position, the right wrist was placed in extended position and a radial arterial pulse was palpated. The skin was then prepped and draped in usual sterile fashion. The ra dial artery was cannulated under direct palpation on the first attempt with return of bright red, pul satile blood. The arterial catheter was inserted without difficulty and secured with a Tegaderm. Go od waveform was identified. A sterile dressing was applied and the procedure was terminated. ESTIMATED BLOOD LOSS: 2 mL COMPLICATIONS: None.
[2017-08-05] MEDS: Propofol 1,000 MG/100 ML VIAL IV PRN (12:32)
[2017-08-05] MEDS ORDERED: DEXTROSE 5% IV SCH ×2 (12:51)
[2017-08-05] MEDS ORDERED: SODIUM BICARBONATE IV SCH ×2 (12:51)
[2017-08-05] MEDS ORDERED: WATER IV SCH ×2 (12:51)
--- NOTE | 2017-08-05 13:05 | PRG ---
DATE OF SERVICE: 08/05/2017 SERVICE: Pulmonary Medicine. INTERVAL HISTORY: The patient is doing fine from a respiratory standpoint. She is breathing very co mfortably today. She is currently on sepsis profile. She is off of the vasopressin altogether. Gabriella norton this had been titrated away. She cannot provide additional elements of history because she is currently intubated and sedated. PHYSICAL EXAMINATION: VITAL SIGNS: Afebrile, currently with a T-max overnight of 101.5, pulse 91, blood pressure 107/50, r espirations 17, saturation 90% on FIO2 of 60% and a PEEP of 11. HEENT: Normocephalic, atraumatic. Sclerae are white, conjunctivae pink. Oral mucosa is moist witho ut lesions. LUNGS: Decreased air entry. Dependent crackles and rhonchi are present. No prolonged expiratory ph ase or wheezing. HEART: Normal rate. Regular today. ABDOMEN: Soft, nontender, nondistended. Bowel sounds positive. MUSCULOSKELETAL: No cyanosis or clubbing. There is trace pitting in the bilateral lower extremities . NEUROLOGIC: Grossly nonfocal. LABORATORY DATA: WBC 27.9, hemoglobin 8.8, platelets 200,000. INR 1.2. PH 7.35, pCO2 of 37, pO2 93 . This is on assist control ventilation with a rate of 21. Creatinine 3.21, which continues to tren d downward, BUN 59, bicarbonate 20, chloride 109. Calcium 6.7 and improving. Influenza A and B is u nremarkable. E. coli is growing from the urine which is essentially pansensitive. Blood cultures an d respiratory virus panel are unremarkable. ASSESSMENT: 1. Acute hypoxic respiratory failure. 2. Septic shock. 3. Healthcare-associated pneumonia. 4. Urinary tract infection secondary to Escherichia coli. 5. Acute kidney injury, improving. 6. Metabolic encephalopathy, improving. PLAN: We will continue supportive care moving forward. I will give her some more calcium. I will K VO her IV fluids that she is currently little volume overloaded with a CVP that is still above 20. P ulmonary Critical Care will continue to follow while the patient remains in this dislocation. CRITICAL CARE TIME: 30 minutes.
[2017-08-05] MEDS: Calcium Gluconate 4.6 MEQ in Sodium Chloride 0.9% 100 ML IVPB SCH ×3 (13:51→20:18)
[2017-08-05] MEDS: Acetaminophen 500 MG TAB PO PRN (14:42)
[2017-08-05] MEDS: clonazePAM 1 MG TAB PER TUBE SCH (20:18)
--- NOTE | 2017-08-05 20:31 | PDOC.PN ---
- Subjective Encounter Start Date: 08/05/17 Encounter Start Time: 18:00 Subjective: f/u for severe sepsis, PNA, UTI off Vasopressin and weaning on Levophed. -: Remains on mech ventilation and UOP improved. Continues on Cefepime -: and Levaquin. - Objective Resuscitation Status: Resuscitation Status FULL:Full Resuscitation MAR Reviewed: Yes Vital Signs & Weight: Vital Signs (12 hours) Pulse Pulse Pulse Resp BP BP BP 08/05/17 18:28 88 9 L 08/05/17 18:00 10 L 08/05/17 16:24 90 99/52 L 08/05/17 16:00 13 08/05/17 14:00 13 08/05/17 13:45 93 101/56 L 08/05/17 13:42 93 17 08/05/17 11:56 14 08/05/17 10:37 90 101/56 L 08/05/17 10:00 16 08/05/17 09:40 82 81 102/54 L 93/50 L Pulse Ox Pulse Ox Pulse Ox 08/05/17 18:28 94 L 08/05/17 18:00 08/05/17 16:24 08/05/17 16:00 08/05/17 14:00 08/05/17 13:45 08/05/17 13:42 91 L 08/05/17 11:56 08/05/17 10:37 08/05/17 10:00 08/05/17 09:40 94 L 90 L Weight Admit Weight 187 lb Weight 188 lb 4.8 oz Most Recent Monitor Data Heart Rate from ECG 91 NIBP 95/47 NIBP BP-Mean 70 Respiration from ECG 15 SpO2 93 I&O: 08/04/17 08/05/17 08/06/17 06:59 06:59 06:59 Intake Total 6097.5 3524.9 1138.2 Output Total 2029 8888 795 Balance 4067.5 946.9 343.2 Result Diagrams: 08/05/17 04:23 08/05/17 03:30 Additional Labs: Accuchecks 08/04/17 23:39 POC Glucose 216 H Microbiology 08/02/17 16:23 Nasal swab Influenza Types A,B Direct EIA - Final 08/02/17 16:18 Venous blood - Right Hand Blood Culture - Preliminary Specimen has been received and culture in progress. No Growth to date. 08/02/17 14:48 Urine clean catch Urine Culture - Preliminary Escherichia coli 08/02/17 13:45 Venous blood - Right Arm Blood Culture - Preliminary Specimen has been received and culture in progress. No Growth to date. Laboratory Tests 08/02/17 08/02/17 08/03/17 13:45 17:49 04:30 WBC Hgb 10.6 L Hct Neutrophils % (Manual) 69 Band Neuts % (Manual) 19 H Carbon Dioxide BUN Creatinine Lactic Acid 4.2 H* Calcium Direct Bilirubin AST 292 H ALT 264 H Alkaline Phosphatase 223 H TSH 3rd Generation Cortisol 08/03/17 08/03/17 08/03/17 04:30 04:30 04:30 WBC 15.2 H Hgb 9.3 L Hct 29.1 L Neutrophils % (Manual) 76 H Band Neuts % (Manual) 18 H Carbon Dioxide BUN Creatinine Lactic Acid 2.5 H Calcium Direct Bilirubin AST ALT Alkaline Phosphatase TSH 3rd Generation Cortisol 23.50 08/04/17 08/04/17 08/04/17 03:45 03:45 03:45 WBC 16.5 H Hgb 9.0 L Hct Neutrophils % (Manual) 52 Band Neuts % (Manual) 34 H Carbon Dioxide 15 L BUN 61 H Creatinine 3.31 H Lactic Acid Calcium Direct Bilirubin 1.3 H AST 404 H ALT 307 H Alkaline Phosphatase 241 H TSH 3rd Generation Cortisol 08/04/17 08/04/17 08/04/17 03:45 10:48 10:48 WBC Hgb Hct Neutrophils % (Manual) Band Neuts % (Manual) Carbon Dioxide 19 L BUN 63 H Creatinine 3.87 H Lactic Acid 2.2 Calcium 6.0 L Direct Bilirubin AST ALT Alkaline Phosphatase TSH 3rd Generation 2.6992 Cortisol 08/05/17 04:23 WBC Hgb Hct Neutrophils % (Manual) 68 Band Neuts % (Manual) 18 H Carbon Dioxide BUN Creatinine Lactic Acid Calcium Direct Bilirubin AST ALT Alkaline Phosphatase TSH 3rd Generation Cortisol EKG Reviewed by me: Yes (Tele - Sinus tachycardia in low 100's) Phys Exam - Physical [facility] place HEENT: oral pharynx no lesions Neck: no JVD, supple diminished in bases Respiratory: wheezing present Cardiovascular: RRR Gastrointestinal: soft, no distention, positive bowel sounds Musculoskeletal: pulses present, edema present Neurological: moves all 4 limbs Deviation from normal: general flushing noted Skin: normal turgor, cap refill <2 seconds Deviation from normal: [place] with pal urine Dx/Plan (1) Severe sepsis with acute organ dysfunction Code(s): A41.9 - SEPSIS, UNSPECIFIED ORGANISM; R65.20 - SEVERE SEPSIS WITHOUT SEPTIC SHOCK Status: Acute Comment: Suspected PNA and Ucx showing E. coli, continue Cefepime and Levaquin, sepsis protocol, await final cx results (2) Acute respiratory failure with hypoxia Code(s): J96.01 - ACUTE RESPIRATORY FAILURE WITH HYPOXIA Status: Acute Comment: Requiring mech vent, Duonebs, Solumedrol, high O2 requirement at 70%, wean as clinically able (3) RENITA (acute kidney injury) Code(s): N17.9 - ACUTE KIDNEY FAILURE, UNSPECIFIED Status: Acute Comment: slow improvement, avoid nephrotoxic meds and contrast media (4) Transaminitis Code(s): R74.0 - NONSPEC ELEV OF LEVELS OF TRANSAMNS & LACTIC ACID DEHYDRGNSE Status: Acute Comment: Suspect due to septic shock, follow LFT trend (5) Lactic acidosis Code(s): E87.2 - ACIDOSIS Status: Acute Comment: Slow improvement with sepsis mgmt, continue tx as outlined above (6) Normocytic anemia Code(s): D64.9 - ANEMIA, UNSPECIFIED Status: Chronic Comment: Stable currently, continue serial H/H monitoring (7) Hypotension Status: Acute Comment: Septic shock on Levophed and off Vasopressin, IVF's, titrate vasopressors to response - Plan continue antibiotics, social staff worker, respiratory therapy, DVT proph w/SCDs Continue critical support -: Nutritional support per CCU protocol -: Wean Levophed as clinically tolerated -: Watch renal function closely -: Continue Levaquin and Cefepime * AM lab: CMP, CBC, Mg++ * PCXR in am
[2017-08-06] MEDS: Hydrocortisone Sod Succ/PF 100 mg/2 ml Vial IVP SCH ×5 (00:55→22:10)
[2017-08-06 04:59] LABS: ALT (SGPT) 242 U/L (8-55); AST (SGOT) 225 U/L (5-34); Alkaline Phosphatase 240 U/L (40-150); Anion Gap 15 mmol/L (10-20); BUN (Urea Nitrogen) 87 mg/dL (7.0-18.7); Bilirubin, Total 1.2 mg/dL (0.2-1.2); Calc. Creatinine Clearance 32 mL/min (70-130); Calcium 7.2 mg/dL (7.8-10.44); Carbon Dioxide 22 mmol/L (22-29); Chloride 109 mmol/L (98-107); Estimated GFR-MDRD 17; Globulin 3.9 g/dL (2.4-3.5); Magnesium 2.4 mg/dL (1.6-2.6); Phosphorus 7.5 mg/dL (2.3-4.7); Protein, Total 6.1 g/dL (6.0-8.3)
[2017-08-06] MEDS: Propofol 1,000 MG/100 ML VIAL IV PRN ×2 (05:29→22:40)
[2017-08-06 05:37] LABS: Band 17 % (5-11); Hematocrit 25.2 % (36.0-47.0); Mean Platelet Volume 7.2 fL (7.4-10.4); Neutrophil 75 % (42-75); Red Blood Cell (RBC) Count 2.67 mill/uL (4.20-5.40); Toxic Granulation SLIGHT; White Blood Cell (WBC) Count 25.2 thou/uL (4.8-10.8)
--- NOTE | 2017-08-06 08:08 | PDOC.PN ---
- Subjective Encounter Start Date: 08/06/17 Encounter Start Time: 07:30 -: non-verbal Subjective: intubated and sedated - Objective Resuscitation Status: Resuscitation Status FULL:Full Resuscitation MAR Reviewed: Yes Vital Signs & Weight: Vital Signs (12 hours) Pulse Resp BP Pulse Ox 08/06/17 07:21 79 112/62 08/06/17 07:19 83 11 L 90 L 08/06/17 06:00 10 L 08/06/17 04:00 11 L 08/06/17 02:00 19 08/06/17 00:37 88 12 93 L 08/06/17 00:00 12 08/05/17 22:00 11 L Weight Admit Weight 187 lb Weight 186 lb 12.8 oz Most Recent Monitor Data Heart Rate from ECG 82 NIBP 116/57 NIBP BP-Mean 67 Respiration from ECG 10 SpO2 94 I&O: 08/05/17 08/06/17 08/07/17 06:59 06:59 06:59 Intake Total 3524.9 1624.6 Output Total 2578 1730 Balance 946.9 -105.4 Result Diagrams: 08/06/17 04:30 08/06/17 04:30 Radiology Reviewed by me: Yes Phys Exam - Physical Examination sedated HEENT: moist MMs ETT IN PLACE Respiratory: no wheezing, no rhonchi SINUS TACHY Gastrointestinal: positive bowel sounds OBESE Musculoskeletal: pulses present SEDATED Skin: no rash Dx/Plan (1) RENITA (acute kidney injury) Code(s): N17.9 - ACUTE KIDNEY FAILURE, UNSPECIFIED Status: Acute Comment: slow improvement, avoid nephrotoxic meds and contrast media (2) Acute respiratory failure with hypoxia Code(s): J96.01 - ACUTE RESPIRATORY FAILURE WITH HYPOXIA Status: Acute Comment: Requiring mech vent, Duonebs, Solumedrol, high O2 requirement at 70%, wean as clinically able (3) Hypotension Status: Acute Comment: Septic shock on Levophed and off Vasopressin, IVF's, titrate vasopressors to response (4) Severe sepsis with acute organ dysfunction Code(s): A41.9 - SEPSIS, UNSPECIFIED ORGANISM; R65.20 - SEVERE SEPSIS WITHOUT SEPTIC SHOCK Status: Acute Comment: Suspected PNA and Ucx showing E. coli, continue Cefepime and Levaquin, sepsis protocol, await final cx results (5) Transaminitis Code(s): R74.0 - NONSPEC ELEV OF LEVELS OF TRANSAMNS & LACTIC ACID DEHYDRGNSE Status: Acute Comment: Suspect due to septic shock, follow LFT trend (6) Normocytic anemia Code(s): D64.9 - ANEMIA, UNSPECIFIED Status: Chronic Comment: Stable currently, continue serial H/H monitoring - Plan cont current plan of care, lang catheter, continue antibiotics, respiratory therapy RENITA IMPROVED, CONTINUE CURRENT REGIMEN. CONDITION GUARDED * . - Discharge Day Encounter end time: 08:10
[2017-08-06] MEDS: Cefepime 1 GM, Admixture Fee 1 EACH in Sterile Water 10 ML SLOW IVP SCH (08:58)
[2017-08-06] MEDS: Famotidine/PF 20 mg/2ml Vial SLOW IVP SCH (08:58)
[2017-08-06] MEDS: clonazePAM 1 MG TAB PER TUBE SCH ×2 (08:58→22:10)
[2017-08-06] MEDS ORDERED: Dextrose 5% in Water 1,000 ML IV SCH (10:00)
[2017-08-06] MEDS ORDERED: Furosemide 40 MG/4 ML VIAL SLOW IVP SCH (10:00)
--- NOTE | 2017-08-06 10:16 | PRG ---
DATE OF SERVICE: 10/07/2016 SERVICE: Pulmonary Medicine INTERVAL HISTORY: The patient is doing great from a respiratory standpoint. Oxygen requirements are improving a little bit. She is starting to have lower extremity edema. My guess is she starting to third space all the fluid that was intervascular previously. Her CVP is also trending downward. Ot herwise, there has been no change in her condition. She remains a little encephalopathic. PHYSICAL EXAMINATION: VITAL SIGNS: Afebrile currently with a T-max overnight of 101.5, pulse 79, blood pressure 112/62, r espirations 10, saturation 94% on pressure controlled ventilation with a PEEP of 11 and FiO2 of 70%. HEENT: Normocephalic, atraumatic. Sclerae are white, conjunctivae pink. Oral and nasal mucosa is m oist without lesions. LUNGS: Decent air entry. Rhonchi and crackles are both present. No prolonged expiratory phase. HEART: Normal rate, regular. ABDOMEN: Soft, nontender, nondistended. Bowel sounds are positive. MUSCULOSKELETAL: No cyanosis or clubbing. No pitting in the bilateral lower extremities. NEUROLOGIC: Grossly nonfocal. LABORATORY DATA: WBC 25.2, hemoglobin 8.0, platelets 173,000. Band count is stable at 17%. INR 1.2 . PH 7.35, pCO2 37, pO2 39. Creatinine 2.97. Basic metabolic profile is otherwise unremarkable. A ST and ALT are both down trending. Urine culture is growing E. coli which is essentially pansensitiv e. All other culture results are negative to date. ASSESSMENT: 1. Acute hypoxic respiratory failure. 2. Septic shock. 3. Healthcare-associated pneumonia, suspected. 4. Urinary tract infection secondary to Escherichia coli. 5. Acute kidney injury, improving. 6. Metabolic encephalopathy. PLAN: We will start some free water today. This will help prevent her sodium from shooting up as I diurese her. We will watch her potassium and other electrolytes. Hopefully, over the next 24 hours, her oxygen requirements will improve dramatically and we can entertain the possibility of a spontane ous breathing trial.
[2017-08-06] MEDS: Norepinephrine 8 MG/0.9% NS 250 ML IVPB SCH (11:14)
[2017-08-06] MEDS ORDERED: Dextrose 5% in Water 500 ML IV SCH (11:30)
[2017-08-07 04:43] LABS: Band 21 % (5-11); Hematocrit 23.9 % (36.0-47.0); Neutrophil 63 % (42-75); Red Blood Cell (RBC) Count 2.56 mill/uL (4.20-5.40); White Blood Cell (WBC) Count 15.8 thou/uL (4.8-10.8)
[2017-08-07] MEDS ORDERED: Furosemide 40 MG/4 ML VIAL SLOW IVP SCH ×2 (06:00)
[2017-08-07 06:02] LABS: ALT (SGPT) 172 U/L (8-55); AST (SGOT) 88 U/L (5-34); Alkaline Phosphatase 234 U/L (40-150); Anion Gap 14 mmol/L (10-20); BUN (Urea Nitrogen) 105 mg/dL (7.0-18.7); Bilirubin, Total 0.8 mg/dL (0.2-1.2); Calc. Creatinine Clearance 43 mL/min (70-130); Calcium 7.3 mg/dL (7.8-10.44); Carbon Dioxide 26 mmol/L (22-29); Chloride 107 mmol/L (98-107); Estimated GFR-MDRD 24; Globulin 3.6 g/dL (2.4-3.5); Magnesium 2.4 mg/dL (1.6-2.6); Phosphorus 5.8 mg/dL (2.3-4.7)
[2017-08-07] MEDS ORDERED: Potassium Chloride 40 MEQ in Sodium Chloride 0.9% 250 ML 250 ML IVPB PRN (07:13)
[2017-08-07] MEDS ORDERED: CCU ELECTROLYTE REPLACEMENT PROTOCOL FS PRN (07:13)
[2017-08-07] MEDS ORDERED: Potassium Chloride 20 MEQ TAB PO PRN (07:13)
[2017-08-07] MEDS ORDERED: Potassium Phosphate 15 MMOL in Sodium Chloride 0.9% 250 ML 250 ML IV PRN (07:13)
[2017-08-07] MEDS ORDERED: Potassium Phosphate 9 MMOL in Sodium Chloride 0.9% 100 ML IVPB PRN (07:13)
[2017-08-07] MEDS ORDERED: Magnesium Oxide 400 MG TAB PO PRN ×2 (07:13)
[2017-08-07] MEDS ORDERED: Magnesium 2 GM/NS 0.9% 100 ML 2 GM in Premix Bag 1 BAG IVPB PRN (07:13)
[2017-08-07] MEDS ORDERED: Potassium Phosphate 12 MMOL in Sodium Chloride 0.9% 250 ML 250 ML IV PRN (07:13)
[2017-08-07] MEDS: Hydrocortisone Sod Succ/PF 100 mg/2 ml Vial IVP SCH (07:24)
[2017-08-07] MEDS: Potassium Chloride 40 MEQ in Premix Bag 1 BAG IVPB PRN ×2 (07:24→22:51)
[2017-08-07] MEDS: Famotidine/PF 20 mg/2ml Vial SLOW IVP SCH (08:08)
[2017-08-07] MEDS: Cefepime 1 GM, Admixture Fee 1 EACH in Sterile Water 10 ML SLOW IVP SCH (08:08)
[2017-08-07] MEDS: clonazePAM 1 MG TAB PER TUBE SCH (08:09)
--- NOTE | 2017-08-07 10:16 | PDOC.PN ---
- Subjective Encounter Start Date: 08/07/17 Encounter Start Time: 09:40 -: non-verbal Subjective: sedated, intubated - Objective Resuscitation Status: Resuscitation Status FULL:Full Resuscitation MAR Reviewed: Yes Vital Signs & Weight: Vital Signs (12 hours) Temp Pulse Resp BP Pulse Ox 08/07/17 08:00 99.0 F 12 08/07/17 06:42 80 100/48 L 08/07/17 06:40 79 12 99 08/07/17 06:00 12 08/07/17 04:00 12 08/07/17 02:18 85 111/47 L 08/07/17 02:00 11 L 08/07/17 00:08 80 107/45 L 08/07/17 00:00 11 L Weight Admit Weight 187 lb Weight 175 lb 14.862 oz Most Recent Monitor Data Heart Rate from ECG 80 NIBP 98/44 NIBP BP-Mean 60 Respiration from ECG 12 SpO2 95 I&O: 08/06/17 08/07/17 08/08/17 06:59 06:59 06:59 Intake Total 1624.6 1621.1 200 Output Total 1730 5690 720 Balance -105.4 -4068.9 -520 Result Diagrams: 08/07/17 03:55 08/07/17 05:08 Additional Labs: Accuchecks 08/06/17 08/06/17 08/06/17 23:58 16:33 11:58 POC Glucose 189 H 174 H 165 H Radiology Reviewed by me: Yes Phys Exam - Physical Examination intubated HEENT: moist MMs intubated Neck: supple Respiratory: no wheezing, clear to auscultation bilateral Cardiovascular: RRR Gastrointestinal: soft, positive bowel sounds Musculoskeletal: edema present Neurological: moves all 4 limbs intubated Skin: no rash Dx/Plan (1) RENITA (acute kidney injury) Code(s): N17.9 - ACUTE KIDNEY FAILURE, UNSPECIFIED Status: Acute Comment: slow improvement, avoid nephrotoxic meds and contrast media (2) Acute respiratory failure with hypoxia Code(s): J96.01 - ACUTE RESPIRATORY FAILURE WITH HYPOXIA Status: Acute Comment: Requiring mech vent, Duonebs, Solumedrol, high O2 requirement at 70%, wean as clinically able (3) Hypotension Status: Acute Comment: Septic shock on Levophed and off Vasopressin, IVF's, titrate vasopressors to response (4) Severe sepsis with acute organ dysfunction Code(s): A41.9 - SEPSIS, UNSPECIFIED ORGANISM; R65.20 - SEVERE SEPSIS WITHOUT SEPTIC SHOCK Status: Acute Comment: Suspected PNA and Ucx showing E. coli, continue Cefepime and Levaquin, sepsis protocol, await final cx results (5) Transaminitis Code(s): R74.0 - NONSPEC ELEV OF LEVELS OF TRANSAMNS & LACTIC ACID DEHYDRGNSE Status: Acute Comment: Suspect due to septic shock, follow LFT trend (6) Normocytic anemia Code(s): D64.9 - ANEMIA, UNSPECIFIED Status: Chronic Comment: Stable currently, continue serial H/H monitoring - Plan cont current plan of care, plan discussed w/ family, continue antibiotics weaning from ventilator per PULMONARY. yeast per sputum cx.defer to ccm * . - Discharge Day Encounter end time: 10:20
[2017-08-07] MEDS ORDERED: Dextrose 5% in Water 500 ML IV SCH (10:17)
--- NOTE | 2017-08-07 10:43 | PRG ---
DATE OF SERVICE: 08/07/2017 SERVICE: Pulmonary Medicine INTERVAL HISTORY: The patient is doing really well from a respiratory standpoint. Oxygen saturation is improving. She is much less oxygen this morning. She is currently sedated and cannot provide an y additional elements of the history. PHYSICAL EXAMINATION: VITAL SIGNS: Afebrile, pulse 80, blood pressure 105/53, respirations 12, saturation 95% on 30% FiO2 and PEEP of 10. GENERAL: The patient is intubated and sedated. HEENT: Normocephalic, atraumatic. Sclerae are white, conjunctivae pink. Oral and nasal mucosa is m oist without lesions. LUNGS: Excellent air entry. No prolonged expiratory phase. Crackles are present HEART: Normal rate, regular. ABDOMEN: Soft, nontender, nondistended. Bowel sounds positive. MUSCULOSKELETAL: No cyanosis or clubbing. There is no pitting in the bilateral lower extremities. NEUROLOGIC: Grossly nonfocal. LABORATORY DATA: WBC is down trending to 15.8, hemoglobin 7.8, platelets 156,000. Band count is 21% and lymphocyte count is 13%, which is rebounding. INR 1.2. Creatinine 2.19 and beautifully down tr ending. Potassium 2.4 and is already being replaced. AST and ALT are down trending. Alkaline phosp hatase is stable. Magnesium and phosphorus are both stable. Respiratory culture is growing yeast sp ecies. Influenza A and B is unremarkable. E. coli is growing in the urine, which is roughly pansens itive. ASSESSMENT: 1. Acute hypoxic respiratory failure, is dramatically improving. 2. Septic shock. 3. Urinary tract infection secondary to Escherichia coli. 4. Acute kidney injury, improving. 5. Metabolic encephalopathy. PLAN: We will hold off on the patient's free water. We will continue supportive care. A sedation h oliday will be provided. If the patient tolerates this, a breathing trial will be considered. Extub ation will be performed if she meets criteria. I do not think she is clearing her sepsis profile vincent y nicely at this point. We will continue to diurese the patient until she returns to euvolemia which she is fast approaching. Critical care time: 30 minutes.
[2017-08-07] MEDS: Propofol 1,000 MG/100 ML VIAL IV PRN (17:27)
[2017-08-08] MEDS: Propofol 1,000 MG/100 ML VIAL IV PRN ×2 (01:58→06:06)
[2017-08-08 04:31] LABS: ALT (SGPT) 173 U/L (8-55); AST (SGOT) 135 U/L (5-34); Alkaline Phosphatase 230 U/L (40-150); Anion Gap 11 mmol/L (10-20); BUN (Urea Nitrogen) 114 mg/dL (7.0-18.7); Bilirubin, Total 0.9 mg/dL (0.2-1.2); Calc. Creatinine Clearance 60 mL/min (70-130); Calcium 8.3 mg/dL (7.8-10.44); Carbon Dioxide 28 mmol/L (22-29); Chloride 115 mmol/L (98-107); Estimated GFR-MDRD 36; Globulin 3.8 g/dL (2.4-3.5); Protein, Total 6.3 g/dL (6.0-8.3)
[2017-08-08 04:50] LABS: Band 2 % (5-11); Hematocrit 25.1 % (36.0-47.0); Mean Platelet Volume 7.3 fL (7.4-10.4); Neutrophil 83 % (42-75); Reactive Lymphocytes 1 % (0-10); Red Blood Cell (RBC) Count 2.73 mill/uL (4.20-5.40); White Blood Cell (WBC) Count 16.1 thou/uL (4.8-10.8)
[2017-08-08] MEDS: Famotidine/PF 20 mg/2ml Vial SLOW IVP SCH (08:20)
[2017-08-08] MEDS: Cefepime 1 GM, Admixture Fee 1 EACH in Sterile Water 10 ML SLOW IVP SCH (09:06)
--- NOTE | 2017-08-08 11:28 | PRG ---
DATE OF SERVICE: 08/08/2017 SERVICE: Pulmonary Medicine. INTERVAL HISTORY: The patient is doing great from a respiratory standpoint. Her oxygen requirements are continuing to improve. Overnight, she did get bumped back up just a little bit, but overall she is significantly improved. She cannot provide any additional elements of the history. She thrashes about the bed in a purposeful way, but unfortunately, she is not doing anything like following comma nds at this time. She remains a little encephalopathic, likely from her elevated BUN and other metab olic derangements. There are no overnight events. PHYSICAL EXAMINATION: VITAL SIGNS: Afebrile, pulse 95, blood pressure 151/75, respirations 21, saturation 96% on 31% FIO2 and a PEEP of 5. GENERAL: Patient is intubated. She is encephalopathic. HEENT: Normocephalic, atraumatic. Sclerae are white, conjunctivae pink. Oral and nasal mucosa is m oist without lesions. LUNGS: Excellent air entry. There is no prolonged expiratory phase, wheezing, rhonchi or crackles. HEART: Normal rate and regular. ABDOMEN: Soft, nontender, nondistended. Bowel sounds are positive. MUSCULOSKELETAL: No cyanosis or clubbing. There is trace pitting in the bilateral lower extremities . NEUROLOGIC: Grossly nonfocal. LABORATORY DATA: WBC 16.1, hemoglobin 8.4 and stable. Platelets 167,000. Neutrophils are 83%, but the band count is dramatically improving. Creatinine 1.56 and improving. BUN continues to climb to 114. Basic metabolic profile is otherwise unremarkable. Sodium has trended upward to 150. Potassiu m is 3.7 and slowly improving. AST, ALT, and alkaline phosphatase are all roughly stable. Blood sug ars ranged from 133-197. Sputum aspirate is growing yeast species, but it is only moderate. E. coli is growing in the urine and it is pansensitive. Blood cultures x2 are negative. Respiratory virus panel is also negative. ASSESSMENT: 1. Acute hypoxic respiratory failure, improving. 2. Septic shock. 3. Urinary tract infection secondary to Escherichia coli. 4. Hypernatremia. 5. Acute kidney injury. 6. Metabolic encephalopathy. PLAN: We will increase the patient's free water in her tube feeds as she is tolerating this just fin e. As her BUN and sodium start to improve, my suspicion is that her encephalopathy will also clear. She is ever so slightly volume overloaded for this hospital stay. Once her brain allows for extubat ion, this can likely be considered through the weekend. We will start some dexmedetomidine up for e next 24 hours to see if this provides her with less agitation. CRITICAL CARE TIME: 30 minutes.
--- NOTE | 2017-08-08 13:21 | PDOC.PN ---
- Subjective Encounter Start Date: 08/08/17 Encounter Start Time: 12:25 -: non-verbal Subjective: SEDATED AND INTUBATED - Objective Resuscitation Status: Resuscitation Status FULL:Full Resuscitation MAR Reviewed: Yes Vital Signs & Weight: Vital Signs (12 hours) Temp Pulse Pulse Pulse Resp BP BP 08/08/17 12:00 98.8 F 22 H 08/08/17 11:56 72 132/65 08/08/17 10:25 75 75 131/66 08/08/17 10:00 28 H 08/08/17 08:00 98.7 F 97 21 H 08/08/17 07:00 98.7 F 08/08/17 06:55 77 140/76 08/08/17 06:52 78 19 08/08/17 06:00 16 08/08/17 04:00 18 08/08/17 03:57 97.7 F 08/08/17 03:15 79 117/62 08/08/17 02:00 18 BP Pulse Ox 08/08/17 12:00 08/08/17 11:56 08/08/17 10:25 151/75 H 08/08/17 10:00 08/08/17 08:00 95 08/08/17 07:00 08/08/17 06:55 08/08/17 06:52 96 08/08/17 06:00 08/08/17 04:00 08/08/17 03:57 08/08/17 03:15 08/08/17 02:00 Weight Admit Weight 187 lb Weight 185 lb 3.013 oz Most Recent Monitor Data Heart Rate from ECG 74 NIBP 116/58 NIBP BP-Mean 76 Respiration from ECG 22 SpO2 94 I&O: 08/07/17 08/08/17 08/09/17 06:59 06:59 06:59 Intake Total 1621.1 2086 128 Output Total 8890 9680 1421 [facility] -4068.9 -3494 -1297 Result Diagrams: 08/08/17 03:55 08/08/17 03:55 Additional Labs: Accuchecks 08/08/17 08/08/17 08/07/17 10:58 03:55 22:20 POC Glucose 149 H 197 H 133 H 08/07/17 16:07 POC Glucose 143 H Phys Exam - Physical Examination SEDATED AND INTUBATED ett in place Neck: supple coarse Cardiovascular: RRR Gastrointestinal: soft obese Musculoskeletal: edema present SEDATED AND INTUBATED Deviation from normal: SEDATED AND INTUBATED Skin: no rash Dx/Plan (1) RENITA (acute kidney injury) Code(s): N17.9 - ACUTE KIDNEY FAILURE, UNSPECIFIED Status: Acute Comment: slow improvement, avoid nephrotoxic meds and contrast media (2) Acute respiratory failure with hypoxia Code(s): J96.01 - ACUTE RESPIRATORY FAILURE WITH HYPOXIA Status: Acute Comment: Requiring mech vent, Duonebs, Solumedrol, high O2 requirement at 70%, wean as clinically able (3) Hypotension Status: Acute Comment: Septic shock on Levophed and off Vasopressin, IVF's, titrate vasopressors to response (4) Severe sepsis with acute organ dysfunction Code(s): A41.9 - SEPSIS, UNSPECIFIED ORGANISM; R65.20 - SEVERE SEPSIS WITHOUT SEPTIC SHOCK Status: Acute Comment: Suspected PNA and Ucx showing E. coli, continue Cefepime and Levaquin, sepsis protocol, await final cx results (5) Transaminitis Code(s): R74.0 - NONSPEC ELEV OF LEVELS OF TRANSAMNS & LACTIC ACID DEHYDRGNSE Status: Acute Comment: Suspect due to septic shock, follow LFT trend (6) Normocytic anemia Code(s): D64.9 - ANEMIA, UNSPECIFIED Status: Chronic Comment: Stable currently, continue serial H/H monitoring - Plan cont current plan of care, continue antibiotics, respiratory therapy slightly improved continue regimen * . - Discharge Day Encounter end time: 13:22
[2017-08-09] MEDS: Propofol 1,000 MG/100 ML VIAL IV PRN (01:43)
[2017-08-09 05:02] LABS: Band 14 % (5-11); Hematocrit 24.9 % (36.0-47.0); Hypochromia SLIGHT = 6-15 cells (100X) (0-5/hpf); Mean Platelet Volume 7.6 fL (7.4-10.4); Neutrophil 73 % (42-75); Red Blood Cell (RBC) Count 2.69 mill/uL (4.20-5.40); White Blood Cell (WBC) Count 16.1 thou/uL (4.8-10.8)
[2017-08-09] MEDS: Cefepime 1 GM, Admixture Fee 1 EACH in Sterile Water 10 ML SLOW IVP SCH (07:45)
[2017-08-09] MEDS: Famotidine/PF 20 mg/2ml Vial SLOW IVP SCH (08:02)
[2017-08-09 09:23] LABS: Oxyhemoglobin 93.3 % (94.0-97.0); Sodium 157 mmol/L (135-148)
[2017-08-09 09:24] LABS: Modified Allen's Test NOT DONE; Vent YES
[2017-08-09 09:25] LABS: I Time 0.65 sec
[2017-08-09 09:26] LABS: Mode PC SIMV PI 9; Pressure Support 11 cmH2O
--- NOTE | 2017-08-09 10:44 | RAD ---
AP VIEW OF THE CHEST: INDICATION: Intubation. COMPARISON: Prior exam dated 08/04/17. FINDINGS: The patient remains intubated with an associated gastric catheter and right IJ central venous cathete r. Cardiomegaly is stable. Pulmonary vascular congestion persists. There is slight worsening of th e central edema pattern seen from the prior exam. There are tiny bilateral pleural effusions. No pn eumothorax is evident. IMPRESSION: 1. Slight interval worsening of the central edema pattern seen from the prior exam. 2. Persistent cardiomegaly with pulmonary vascular congestion and small bilateral pleural effusions. 3. Stable tubes and lines. POS: [facility]
--- NOTE | 2017-08-09 10:56 | PDOC.PN ---
- Subjective Encounter Start Date: 08/09/17 Encounter Start Time: 10:15 -: non-verbal Subjective: SEDATED AND INTUBATED - Objective Resuscitation Status: Resuscitation Status FULL:Full Resuscitation MAR Reviewed: Yes Vital Signs & Weight: Vital Signs (12 hours) Temp Pulse Resp BP Pulse Ox 08/09/17 09:32 67 121/62 08/09/17 09:30 70 26 H 93 L 08/09/17 08:00 99.6 F 67 27 H 92 L 08/09/17 07:00 99.6 F 08/09/17 06:00 30 H 08/09/17 04:00 98.7 F 24 H 08/09/17 02:58 68 143/68 H 08/09/17 02:00 22 H 08/09/17 00:47 76 142/70 H 08/09/17 00:00 98.4 F 30 H Weight Admit Weight 187 lb Weight 186 lb 4.65 oz Most Recent Monitor Data Heart Rate from ECG 63 NIBP 121/62 NIBP BP-Mean 72 Respiration from ECG 27 SpO2 91 I&O: 08/08/17 08/09/17 08/10/17 06:59 06:59 06:59 Intake Total 2086 1737.7 10 Output Total 5580 4080 420 [facility] -3494 -2342.3 -410 Result Diagrams: 08/09/17 03:55 08/08/17 03:55 Additional Labs: Accuchecks 08/08/17 08/08/17 08/08/17 22:18 17:32 10:58 POC Glucose 135 H 133 H 149 H Phys Exam - Physical Examination SEDATED AND INTUBATED HEENT: moist MMs ETT IN PLACE Neck: supple Respiratory: clear to auscultation bilateral Cardiovascular: RRR, no significant murmur Gastrointestinal: soft, positive bowel sounds Musculoskeletal: edema present SEDATED AND INTUBATED Dx/Plan (1) RENITA (acute kidney injury) Code(s): N17.9 - ACUTE KIDNEY FAILURE, UNSPECIFIED Status: Acute Comment: slow improvement, avoid nephrotoxic meds and contrast media (2) Acute respiratory failure with hypoxia Code(s): J96.01 - ACUTE RESPIRATORY FAILURE WITH HYPOXIA Status: Acute Comment: Requiring mech vent, Duonebs, Solumedrol, high O2 requirement at 70%, wean as clinically able (3) Hypotension Status: Acute Comment: Septic shock on Levophed and off Vasopressin, IVF's, titrate vasopressors to response (4) Severe sepsis with acute organ dysfunction Code(s): A41.9 - SEPSIS, UNSPECIFIED ORGANISM; R65.20 - SEVERE SEPSIS WITHOUT SEPTIC SHOCK Status: Acute Comment: Suspected PNA and Ucx showing E. coli, continue Cefepime and Levaquin, sepsis protocol, await final cx results (5) Transaminitis Code(s): R74.0 - NONSPEC ELEV OF LEVELS OF TRANSAMNS & LACTIC ACID DEHYDRGNSE Status: Acute Comment: Suspect due to septic shock, follow LFT trend (6) Normocytic anemia Code(s): D64.9 - ANEMIA, UNSPECIFIED Status: Chronic Comment: Stable currently, continue serial H/H monitoring - Plan cont current plan of care, continue antibiotics CONDITION REMAINS GUARDED * . - Discharge Day Encounter end time: 10:58
[2017-08-09] MEDS: Acetaminophen 500 MG TAB PO PRN (13:08)
--- NOTE | 2017-08-09 15:06 | PRG ---
DATE OF SERVICE: 08/09/2017 SUBJECTIVE: This is a 47-year-old female with admitting diagnosis of sepsis and respiratory failure. She remains encephalopathic. She was started on dex yesterday because she has got agitation. She was put back on Diprivan. PHYSICAL EXAMINATION: GENERAL: This morning, she is sedated, unresponsive. VITAL SIGNS: Blood pressure 141/69, sats 94%, pulse 68, and blood pressure 130/62. CHEST: Reveals extensive rhonchi and crackles. CARDIAC: Normal S1, S2, no gallops. ABDOMEN: Soft. LABORATORY DATA: White count 16,000, hemoglobin and hematocrit 8 and 24, platelet count is normal, g lucose 135. IMPRESSION: Respiratory failure, urinary tract infection, morbidly obese, electrolyte imbalance, Esc herichia coli sepsis. PLAN: Antibiotics for E. coli. She is not weanable at this stage. Lab and x-ray has been ordered. Further recommendations as per above. Nutrition and PT. One-half hour critical care time.
[2017-08-10 05:57] LABS: Anion Gap 11 mmol/L (10-20); BUN (Urea Nitrogen) 69 mg/dL (7.0-18.7); Calc. Creatinine Clearance 91 mL/min (70-130); Calcium 8.4 mg/dL (7.8-10.44); Carbon Dioxide 27 mmol/L (22-29); Chloride 122 mmol/L (98-107); Estimated GFR-MDRD 58
[2017-08-10] MEDS: Potassium Chloride 40 MEQ in Premix Bag 1 BAG IVPB PRN (06:13)
[2017-08-10 06:16] LABS: Band 2 % (5-11); Mean Platelet Volume 7.8 fL (7.4-10.4); Neutrophil 79 % (42-75); Red Blood Cell (RBC) Count 2.78 mill/uL (4.20-5.40); White Blood Cell (WBC) Count 20.2 thou/uL (4.8-10.8)
--- NOTE | 2017-08-10 09:13 | RAD ---
PORTABLE CHEST: History CCU and ventilator followup. COMPARISON: 08/09/17. FINDINGS/IMPRESSION: ET tube, NG tube, and central lines unchanged. Lungs show vascular engorgement and bilateral parench ymal opacities suggesting atelectasis or infiltrate. Findings appear stable from yesterday. POS: [facility]
[2017-08-10] MEDS: Cefepime 1 GM, Admixture Fee 1 EACH in Sterile Water 10 ML SLOW IVP SCH (09:34)
[2017-08-10] MEDS: Famotidine/PF 20 mg/2ml Vial SLOW IVP SCH (09:34)
[2017-08-10] MEDS ORDERED: DC Sedation Protocol FS ONE (09:50)
[2017-08-10] MEDS ORDERED: Sodium Chloride 0.45% 1,000 ML IV SCH (10:00)
[2017-08-10] MEDS ORDERED: Dexamethasone 4 mg/ml Vial ONE (13:30)
[2017-08-10] MEDS ORDERED: Cepastat Lozenges 1 LOZ PO PRN (13:44)
[2017-08-10] MEDS ORDERED: Dexamethasone 4 mg/ml Vial SLOW IVP SCH (13:45)
--- NOTE | 2017-08-10 16:41 | PRG ---
DATE OF SERVICE: 08/10/2017 SUBJECTIVE: This morning, she is more awake and responsive. She has been on CPAP for 2 hours with n o distress. PHYSICAL EXAMINATION: VITAL SIGNS: Sats are 97%, respirations are 18, pulse 72, blood pressure 130/80. CHEST: Reveals bilateral rhonchi and crackles. CARDIAC: Normal S1, S2. No gallops. I's and O's are 1737 in and 4080 out. LABORATORY DATA: White count 20,000, H&H 8 and 26, platelet count normal. Sodium 157, creatinine is 1, BUN 69, . IMPRESSION: Sepsis syndrome, respiratory failure, encephalopathy, azotemia prerenal. PLAN: Slow hydration, extubated wean. Continue PT and supportive care. We will follow. One-half hour critical care time.
[2017-08-10] MEDS: Dexamethasone 4 mg/ml Vial SLOW IVP SCH ×2 (17:41→23:36)
[2017-08-10] MEDS ORDERED: cloNIDine 0.2mg/24 Hour PATCH TD SCH (21:00)
--- NOTE | 2017-08-10 21:07 | PDOC.PN ---
- Subjective Encounter Start Date: 08/10/17 Encounter Start Time: 15:00 Patient seen and examined. Extubated earlier today. Received racemic epi earlier. No overnight events - Objective Resuscitation Status: Resuscitation Status FULL:Full Resuscitation MAR Reviewed: Yes Vital Signs & Weight: Vital Signs (12 hours) Temp Pulse Pulse Pulse Resp BP BP 08/10/17 19:00 98.1 F 08/10/17 18:34 85 33 H 08/10/17 16:00 98.3 F 08/10/17 15:57 74 76 156/81 H 149/90 H 08/10/17 13:30 88 28 H 08/10/17 13:15 82 32 H 08/10/17 12:00 98.5 F 08/10/17 10:35 27 L 24 H 08/10/17 10:15 71 28 H 08/10/17 09:50 76 25 H Pulse Ox Pulse Ox Pulse Ox 08/10/17 19:00 08/10/17 18:34 98 08/10/17 16:00 08/10/17 15:57 99 100 08/10/17 13:30 08/10/17 13:15 08/10/17 12:00 96 08/10/17 10:35 08/10/17 10:15 08/10/17 09:50 99 Weight Admit Weight 187 lb Weight 183 lb 10.321 oz Most Recent Monitor Data Heart Rate from ECG 98 NIBP 186/96 NIBP BP-Mean 145 Respiration from ECG 37 SpO2 95 I&O: 08/09/17 08/10/17 08/11/17 06:59 06:59 06:59 Intake Total 1737.7 1871 446 Output Total 4080 2635 1420 Balance -2342.3 -764 -974 Result Diagrams: 08/11/17 03:33 08/11/17 03:33 Additional Labs: Accuchecks 08/10/17 08/10/17 08/10/17 17:38 11:52 03:45 POC Glucose 142 H 126 H 161 H 08/09/17 21:48 POC Glucose 143 H Radiology Reviewed by me: Yes (CXR - No significant change from previous) EKG Reviewed by me: Yes (Tele SR) Phys Exam - Physical Examination Constitutional: NAD Respiratory: no wheezing Scat rhonchi and rales B/L, Symmetrical Cardiovascular: RRR, no rub no heaves/pulsations Gastrointestinal: soft, non-tender, no distention, positive bowel sounds Musculoskeletal: no edema Neurological: non-focal, normal sensation, moves all 4 limbs Psychiatric: normal affect, A&O x 3 Dx/Plan - Plan DVT proph w/SCDs IMPRESSION: 1. Acute hypoxic resp failure - extubated 08/10 2. Severe Sepsis/Septic shock 3. ?HCAP 4. E coli UTI 5. RENITA/CKD 2 6. Toxic Metabolic Encephalopathy / h/o HTN/Anxiety PLAN: * Cont Cefepime * Critical care following * Cont to monitor * AM labs * On Dexamethasone * Cont other meds as below Review of Systems - Review of Systems Respiratory: Cough, Dry, Shortness of Breath, Wheezing Cardiovascular: negative: Chest Pain, Palpitations, Orthopnea, Paroxysmal Noc. Dyspnea, Edema, Light Headedness Gastrointestinal: negative: Nausea, Vomiting, Abdominal Pain, Diarrhea, Constipation, Melena, Hematochezia - Medications/Allergies Allergies/Adverse Reactions: Allergies Allergy/AdvReac Type Severity Reaction Status Date / Time No Known Allergies Allergy Verified 08/02/17 16:02 Medications: Current Medications Acetaminophen (Tylenol) 1,000 mg PO Q6H PRN PRN Reason: Headache/Fever or Mild Pain Last Admin: 08/09/17 13:08 Dose: 1,000 mg Albuterol/Ipratropium (Duoneb) 3 ml NEB [id number] [facility] Last Admin: 08/10/17 18:34 Dose: 3 ml Clonidine ([id number]) 0.2 mg TD Ferreira@2100 [facility] Last Admin: 08/10/17 20:37 Dose: 0.2 mg Dexamethasone (Decadron) 4 mg SLOW IVP Q6HR [facility] Stop: 08/11/17 12:01 Last Admin: 08/10/17 17:41 Dose: 4 mg Dextrose/Water (Dextrose 50%) 25 gm IVP PRN PRN PRN Reason: HYPOGLYCEMIA PROTOCOL Famotidine (Pepcid) 20 mg SLOW IVP DAILY [facility] Last Admin: 08/10/17 09:34 Dose: 20 mg Glucagon (Glucagon) 1 mg IM PRN PRN PRN Reason: HYPOGLYCEMIA PROTOCOL Cefepime HCl 1 gm/Miscellaneous Medication 1 each/ Sterile Water 10 mls @ 120 mls/hr SLOW IVP 0800 [facility] Last Admin: 08/10/17 09:34 Dose: 10 mls Dextrose/Water (D5w) 1,000 mls @ 0 mls/hr IV INF PRN; As Directed PRN Reason: HYPOGLYCEMIA PROTOCOL Potassium Chloride 40 meq/ (Sodium Chloride) 270 mls @ 135 mls/hr IVPB ASDIR PRN PRN Reason: FOR SERUM K+ 2.5 - 3.5 Potassium Chloride 40 meq/ (Device) 100 mls @ 50 mls/hr IVPB ASDIR PRN PRN Reason: FOR SERUM K+ 2.5 - 3.5 Last Admin: 08/10/17 06:13 Dose: 100 mls Magnesium Sulfate 1 gm/ Sodium (Chloride) 102 mls @ 102 mls/hr IV PRN PRN PRN Reason: MAG LEVEL 1.4 - 2.0 Magnesium Sulfate 2 gm/ Device 100 mls @ 100 mls/hr IVPB ASDIR PRN PRN Reason: MAGNESIUM < 1.4 Potassium Phosphate 9 mmol/ (Sodium Chloride) 103 mls @ 25.75 mls/hr IVPB ASDIR PRN PRN Reason: Phosphate 1.0-1.8 Potassium Phosphate 12 mmol/ (Sodium Chloride) 254 mls @ 63.5 mls/hr IV ASDIR PRN PRN Reason: Serum phosphate 0.5-0.9 Potassium Phosphate 15 mmol/ (Sodium Chloride) 255 mls @ 63.75 mls/hr IV ASDIR PRN PRN Reason: Serum Phos < 0.5 Dexmedetomidine HCl 400 mcg/ (Sodium Chloride) 100 mls @ 0 mls/hr IVPB INF SHANAE ; Titrate PRN Reason: Protocol Last Admin: 08/10/17 06:46 Dose: 100 mls Sodium Chloride (1/2 Normal Saline) 1,000 mls @ 50 mls/hr IV .Q20H [facility] Last Admin: 08/10/17 13:58 Dose: 1,000 mls Magnesium Oxide (Magnesium Oxide) 400 mg PO BIDPRN PRN PRN Reason: FOR SERUM MAG 1.4 - 2.0 Magnesium Oxide (Magnesium Oxide) 800 mg PO PRN PRN PRN Reason: FOR SERUM MAG < 1.4 Mineral Oil/White Petrolatum (Lacri-Lube Ointment) 0 gm EA EYE PRN PRN PRN Reason: Dry Eyes Miscellaneous Medication (Phos-Nak) 1 pkt PO TIDPRN PRN PRN Reason: FOR PHOS LEVEL 1.0 - 1.8 Miscellaneous Medication (Phos-Nak) 2 pkt PO TIDPRN PRN PRN Reason: FOR PHOS LEVEL 0.5 - 1.0 Ccu Electrolyte (Replacement Protocol) 0 each FS PRN PRN PRN Reason: FOR ELECTROLYTE REPLACEMENT Ondansetron HCl (Zofran Odt) 4 mg PO Q6H PRN PRN Reason: Nausea/Vomiting Ondansetron HCl (Zofran) 4 mg IVP Q6H PRN PRN Reason: Nausea/Vomiting Last Admin: 08/02/17 18:48 Dose: 4 mg Potassium Chloride (K-Dur) 40 meq PO ASDIR PRN PRN Reason: FOR SERUM K+ 2.5 - 3.5 Potassium Chloride (Klor-Con) 40 meq PER TUBE ASDIR PRN PRN Reason: FOR SERUM K+ 2.5-3.5 Sodium Chloride (Flush - Normal Saline) 10 ml IVF Q12HR [facility] Last Admin: 08/10/17 20:40 Dose: 10 ml Sodium Chloride (Flush - Normal Saline) 10 ml IVF PRN PRN PRN Reason: Saline Flush Throat Lozenges (Cepastat Lozenges) 1 tatiana PO Q2H PRN PRN Reason: Sore Throat
[2017-08-10] MEDS: Morphine 2 MG/ML SYRINGE SLOW IVP PRN (21:20)
[2017-08-10 22:24] LABS: Oxyhemoglobin 94.2 % (94.0-97.0); Sodium 162 mmol/L (135-148)
[2017-08-10 22:27] LABS: Mode NIV; Modified Allen's Test POSITIVE; Pressure Support 11 cmH2O; Vent NO
[2017-08-10] MEDS ORDERED: Diprivan 20 ML ONE (22:36)
[2017-08-10 23:32] LABS: Oxyhemoglobin 91.8 % (94.0-97.0); Sodium 160 mmol/L (135-148)
[2017-08-10 23:34] LABS: Mechanical Tidal Volume 450 ml; Mode SIMV; Modified Allen's Test POSITIVE; Pressure Support 10 cmH2O; Vent YES
--- NOTE | 2017-08-10 23:39 | RAD ---
RADIOGRAPH CHEST 1 VIEW: Date: 08-10-17 Time: 11:30 p.m. HISTORY: 47-year-old female in respiratory failure. COMPARISON: 08-10-17 at 4:51 a.m. FINDINGS: Endotracheal tube and right IJ central line remain. Lung volumes remain low. Diffuse, bilateral, hete rogeneously distributed mixed interstitial and alveolar infiltrates. These appear mildly worse compar ed to 08-10-17, and the right side appears definitely worse compared to 08-09-17. There is another in terval change of now complete silhouetting of the left hemidiaphragm. IMPRESSION: 1. Interval worsening of bilateral heterogeneous infiltrates. 2. Interval development of either a left pleural effusion or consolidation of left lower lobe base. IVANA POS: [facility]
[2017-08-11] MEDS: Morphine 2 MG/ML SYRINGE SLOW IVP PRN ×2 (03:50→07:52)
[2017-08-11 04:28] LABS: #Eosinphils 0.1 thou/uL (0.0-0.7); #Lymphocytes 1.6 thou/uL (1.20-3.40); #Monocytes 0.5 thou/uL (0.11-0.59); #Neutrophils 12.5 thou/uL (1.40-6.50); %Eosinophils 0.4 % (0.0-10.0); %Lymphocytes 10.8 % (21.0-51.0); %Monocytes 3.4 % (0.0-10.0); Hematocrit 27.8 % (36.0-47.0); Mean Platelet Volume 7.8 fL (7.4-10.4); Red Blood Cell (RBC) Count 2.94 mill/uL (4.20-5.40); White Blood Cell (WBC) Count 14.6 thou/uL (4.8-10.8)
[2017-08-11 04:41] LABS: Anion Gap 12 mmol/L (10-20); BUN (Urea Nitrogen) 59 mg/dL (7.0-18.7); Calc. Creatinine Clearance 103 mL/min (70-130); Calcium 8.7 mg/dL (7.8-10.44); Carbon Dioxide 24 mmol/L (22-29); Chloride 125 mmol/L (98-107); Estimated GFR-MDRD 67
[2017-08-11] MEDS: Dexamethasone 4 mg/ml Vial SLOW IVP SCH ×2 (05:47→13:04)
[2017-08-11] MEDS: Famotidine/PF 20 mg/2ml Vial SLOW IVP SCH (07:49)
[2017-08-11] MEDS ORDERED: Dextrose 5% in Water 1,000 ML IV SCH (08:45)
[2017-08-11] MEDS: Famotidine 20 MG TAB PER TUBE SCH ×2 (09:16→20:38)
[2017-08-11] MEDS: Cefepime 1 GM, Admixture Fee 1 EACH in Sterile Water 10 ML SLOW IVP SCH (09:54)
--- NOTE | 2017-08-11 10:48 | PRG ---
DATE OF SERVICE: 08/11/2017 SERVICE: Pulmonary Medicine. INTERVAL HISTORY: The patient is doing great this morning. Yesterday, she was extubated. She is co mfortable after extubation, but then developed a stridorous sound. She got racemic epinephrine, and a couple doses of steroids. She settled down again, but had recrudescence symptoms. This prompted a second dose of racemic epinephrine. Once again, she settled down and got better. Later in the even ing, she had an additional event. Ultimately, she was reintubated. This morning, she is doing well on a spontaneous breathing trial and has no complaints of fevers, chills, nausea, vomiting or chest d iscomfort. She is asking for the tube to be removed again, but I told her that I would like for a li ttle bit of more time to pass in order for me to pull the tube out this morning. Otherwise, there we re no significant events overnight. PHYSICAL EXAMINATION: VITAL SIGNS: Afebrile, pulse 62, blood pressure 151/94, respirations 27, saturation 93% on 31% FIO2 and a PEEP of 5. HEENT: Normocephalic, atraumatic. Sclerae are white, conjunctivae pink. Oral and nasal mucosa is m oist without lesions. LUNGS: Decent air entry. There are crackles present. No prolonged expiratory phase or wheezing is appreciated. HEART: Normal rate, regular. ABDOMEN: Soft, nontender, nondistended. Bowel sounds are positive. MUSCULOSKELETAL: No cyanosis or clubbing. No pitting in the bilateral lower extremities. NEUROLOGIC: Grossly nonfocal. LABORATORY DATA: WBC 14.6, hemoglobin 8.8, platelets 310,000. INR 1.2. PH 7.39, pCO2 36, pO2 68.9 on 50% FiO2 at that time. Sodium 157, potassium 3.7. Chloride 125 and up trending. Basic metabolic profile is otherwise unremarkable. Urinalysis is unremarkable. Respiratory culture has moderate ye ast species. E. coli is growing in the urine. IMAGING: There is multifocal infiltrates throughout the bilateral lung gillette, which is worse compar ed to yesterday. There has been development of a left-sided pleural effusion versus consolidation in the left base. ASSESSMENT: 1. Acute hypoxic respiratory failure. 2. Septic shock. 3. Urinary tract infection secondary to Escherichia coli. 4. Hypernatremia. 5. Acute kidney injury, resolving. 6. Metabolic encephalopathy, resolved. PLAN: We will watch her ins and outs and try to keep her 1-2 liters negative over the next 24 hours once again. Her BUN is starting to drop off and her mentation has improved very nicely. We will giv e her a CPAP trial and consider her for extubation this afternoon, if she does extraordinarily well w ith that. We will need to watch her very closely after the tube comes out once again. Critical care time: 30 minutes.
[2017-08-11] MEDS: Sodium Chloride 38.44 MEQ in Sterile Water Injection 990.39 ML IV SCH (10:58)
[2017-08-11] MEDS: Micafungin 100 MG in Sodium Chloride 0.9% 100 ML IVPB SCH (13:04)
--- NOTE | 2017-08-11 17:54 | PDOC.PN ---
- Subjective Encounter Start Date: 08/11/17 Encounter Start Time: 14:00 Patient seen and examined. No new complaints. No overnight events. Intubated on Vent. Awake/Alert - Objective Resuscitation Status: Resuscitation Status FULL:Full Resuscitation MAR Reviewed: Yes Vital Signs & Weight: Vital Signs (12 hours) Temp Pulse Resp BP Pulse Ox 08/11/17 16:37 61 137/73 08/11/17 16:00 98.8 F 26 H 08/11/17 14:17 52 L 137/74 08/11/17 14:00 22 H 08/11/17 12:00 98.4 F 22 H 08/11/17 10:03 62 151/94 H 08/11/17 10:00 22 H 08/11/17 09:14 21 H 08/11/17 08:00 99.4 F 62 16 99 08/11/17 07:00 99.4 F 08/11/17 06:34 64 129/72 08/11/17 06:00 22 H Weight Admit Weight 187 lb Weight 186 lb 8.177 oz Most Recent Monitor Data Heart Rate from ECG 54 NIBP 139/68 NIBP BP-Mean 111 Respiration from ECG 22 SpO2 94 I&O: 08/10/17 08/11/17 08/12/17 06:59 06:59 06:59 Intake Total 1871 1146 1000 Output Total 2635 2260 800 Balance -764 -1114 200 Result Diagrams: 08/11/17 03:33 08/11/17 03:33 Additional Labs: Accuchecks 08/11/17 08/11/17 08/10/17 13:11 03:33 22:03 POC Glucose 133 H 143 H 146 H EKG Reviewed by me: Yes (Tele SR) Phys Exam - Physical Examination Constitutional: NAD Respiratory: no wheezing B/L rhonchi/rales tiffani at bases Cardiovascular: RRR, no rub no heaves/pulsations Gastrointestinal: soft, non-tender, no distention, positive bowel sounds Musculoskeletal: no edema Neurological: non-focal, moves all 4 limbs Psychiatric: normal affect, A&O x 3 Dx/Plan - Plan DVT proph w/SCDs IMPRESSION: 1. Acute hypoxic resp failure - failed extubation 08/10 - 2. Severe Sepsis/Septic shock 3. ?HCAP 4. E coli UTI 5. RENITA/CKD 2 6. Toxic Metabolic Encephalopathy / h/o HTN/Anxiety PLAN: * Cont Cefepime * On Micafungin * Critical care following * Cont to monitor * AM labs * Cont other meds as below Review of Systems - Review of Systems Respiratory: negative: Cough, Dry, Shortness of Breath, Hemoptysis, SOB with Excertion, Pleuritic Pain, Sputum, Wheezing Cardiovascular: negative: Chest Pain, Palpitations, Orthopnea, Paroxysmal Noc. Dyspnea, Edema, Light Headedness Gastrointestinal: negative: Nausea, Vomiting, Abdominal Pain, Diarrhea, Constipation, Melena, Hematochezia - Medications/Allergies Allergies/Adverse Reactions: Allergies Allergy/AdvReac Type Severity Reaction Status Date / Time No Known Allergies Allergy Verified 08/02/17 16:02 Medications: Current Medications Acetaminophen (Tylenol) 1,000 mg PO Q6H PRN PRN Reason: Headache/Fever or Mild Pain Last Admin: 08/09/17 13:08 Dose: 1,000 mg Albuterol/Ipratropium (Duoneb) 3 ml NEB [id number] [facility] Last Admin: 08/11/17 14:16 Dose: 3 ml Clonidine ([id number]-Ufw-2) 0.2 mg TD Ferreira@2100 [facility] Last Admin: 08/10/17 20:37 Dose: 0.2 mg Dextrose/Water (Dextrose 50%) 25 gm IVP PRN PRN PRN Reason: HYPOGLYCEMIA PROTOCOL Famotidine (Pepcid) 20 mg PER TUBE BID [facility] Last Admin: 08/11/17 09:16 Dose: Not Given Glucagon (Glucagon) 1 mg IM PRN PRN PRN Reason: HYPOGLYCEMIA PROTOCOL Cefepime HCl 1 gm/Miscellaneous Medication 1 each/ Sterile Water 10 mls @ 120 mls/hr SLOW IVP 0800 [facility] Last Admin: 08/11/17 09:54 Dose: 10 mls Dextrose/Water (D5w) 1,000 mls @ 0 mls/hr IV INF PRN; As Directed PRN Reason: HYPOGLYCEMIA PROTOCOL Potassium Chloride 40 meq/ (Sodium Chloride) 270 mls @ 135 mls/hr IVPB ASDIR PRN PRN Reason: FOR SERUM K+ 2.5 - 3.5 Potassium Chloride 40 meq/ (Device) 100 mls @ 50 mls/hr IVPB ASDIR PRN PRN Reason: FOR SERUM K+ 2.5 - 3.5 Last Admin: 08/10/17 06:13 Dose: 100 mls Magnesium Sulfate 1 gm/ Sodium (Chloride) 102 mls @ 102 mls/hr IV PRN PRN PRN Reason: MAG LEVEL 1.4 - 2.0 Magnesium Sulfate 2 gm/ Device 100 mls @ 100 mls/hr IVPB ASDIR PRN PRN Reason: MAGNESIUM < 1.4 Potassium Phosphate 9 mmol/ (Sodium Chloride) 103 mls @ 25.75 mls/hr IVPB ASDIR PRN PRN Reason: Phosphate 1.0-1.8 Potassium Phosphate 12 mmol/ (Sodium Chloride) 254 mls @ 63.5 mls/hr IV ASDIR PRN PRN Reason: Serum phosphate 0.5-0.9 Potassium Phosphate 15 mmol/ (Sodium Chloride) 255 mls @ 63.75 mls/hr IV ASDIR PRN PRN Reason: Serum Phos < 0.5 Dexmedetomidine HCl 400 mcg/ (Sodium Chloride) 100 mls @ 0 mls/hr IVPB INF [facility] ; Titrate PRN Reason: Protocol Last Admin: 08/11/17 13:35 Dose: 100 mls Sodium Chloride 38.44 meq/ (Sterile Water) 1,000 mls @ 75 mls/hr IV INF [facility] Last Admin: 08/11/17 10:58 Dose: 1,000 mls Micafungin Sodium 100 mg/ (Sodium Chloride) 100 mls @ 100 mls/hr IVPB 1100 [facility] Stop: 08/17/17 11:59 Last Admin: 08/11/17 13:04 Dose: 100 mls Magnesium Oxide (Magnesium Oxide) 400 mg PO BIDPRN PRN PRN Reason: FOR SERUM MAG 1.4 - 2.0 Magnesium Oxide (Magnesium Oxide) 800 mg PO PRN PRN PRN Reason: FOR SERUM MAG < 1.4 Mineral Oil/White Petrolatum (Lacri-Lube Ointment) 0 gm EA EYE PRN PRN PRN Reason: Dry Eyes Miscellaneous Medication (Phos-Nak) 1 pkt PO TIDPRN PRN PRN Reason: FOR PHOS LEVEL 1.0 - 1.8 Miscellaneous Medication (Phos-Nak) 2 pkt PO TIDPRN PRN PRN Reason: FOR PHOS LEVEL 0.5 - 1.0 Ccu Electrolyte (Replacement Protocol) 0 each FS PRN PRN PRN Reason: FOR ELECTROLYTE REPLACEMENT Ondansetron HCl (Zofran Odt) 4 mg PO Q6H PRN PRN Reason: Nausea/Vomiting Ondansetron HCl (Zofran) 4 mg IVP Q6H PRN PRN Reason: Nausea/Vomiting Last Admin: 08/02/17 18:48 Dose: 4 mg Potassium Chloride (K-Dur) 40 meq PO ASDIR PRN PRN Reason: FOR SERUM K+ 2.5 - 3.5 Potassium Chloride (Klor-Con) 40 meq PER TUBE ASDIR PRN PRN Reason: FOR SERUM K+ 2.5-3.5 Sodium Chloride (Flush - Normal Saline) 10 ml IVF Q12HR [facility] Last Admin: 08/11/17 07:53 Dose: 10 ml Sodium Chloride (Flush - Normal Saline) 10 ml IVF PRN PRN PRN Reason: Saline Flush Throat Lozenges (Cepastat Lozenges) 1 tatiana PO Q2H PRN PRN Reason: Sore Throat
[2017-08-12] MEDS: Sodium Chloride 38.44 MEQ in Sterile Water Injection 990.39 ML IV SCH ×2 (01:59→15:03)
[2017-08-12 04:10] LABS: Anion Gap 10 mmol/L (10-20); BUN (Urea Nitrogen) 61 mg/dL (7.0-18.7); Calc. Creatinine Clearance 102 mL/min (70-130); Calcium 8.8 mg/dL (7.8-10.44); Carbon Dioxide 21 mmol/L (22-29); Estimated GFR-MDRD 66
[2017-08-12 04:13] LABS: Chloride 126 mmol/L (98-107)
[2017-08-12 04:54] LABS: #Lymphocytes 2.5 thou/uL (1.20-3.40); #Monocytes 0.7 thou/uL (0.11-0.59); %Basophils 0.1 % (0.0-1.0); %Eosinophils 0.2 % (0.0-10.0); %Lymphocytes 15.5 % (21.0-51.0); %Monocytes 4.1 % (0.0-10.0); Hematocrit 26.9 % (36.0-47.0); Mean Platelet Volume 8.5 fL (7.4-10.4); Red Blood Cell (RBC) Count 2.84 mill/uL (4.20-5.40); White Blood Cell (WBC) Count 16.2 thou/uL (4.8-10.8)
[2017-08-12] MEDS: Cefepime 1 GM, Admixture Fee 1 EACH in Sterile Water 10 ML SLOW IVP SCH (09:16)
[2017-08-12] MEDS: Famotidine 20 MG TAB PER TUBE SCH ×2 (09:16→20:35)
[2017-08-12] MEDS ORDERED: Furosemide 20 MG/2 ML VIAL SLOW IVP SCH (09:30)
--- NOTE | 2017-08-12 09:33 | PRG ---
DATE OF SERVICE: 08/12/2017 SERVICE: Pulmonary Medicine INTERVAL HISTORY: The patient is doing okay on mechanical ventilation. She is a CPAP trial of 5/5 t his morning. We deflated the cuff and she had absolutely no air leak, even with vigorous cough and h igh pressures. That being said, we had a conversation with her. She is fully awake and oriented. S he is CAM negative. She tells us that she would like to try a trial of extubation once again to see whether or not she can tolerate having to come out. She understands that if she fails this, will hav e to put her back down and a tracheostomy will need to be performed. PHYSICAL EXAMINATION: VITAL SIGNS: Afebrile, pulse 54, blood pressure 159/80, respirations 26, saturation 95% on 40% FiO2 and a PEEP of 5. GENERAL: The patient is awake, alert, in no apparent distress. LUNGS: Decent air entry. Dependent crackles are minimal. HEART: Normal rate, regular. ABDOMEN: Soft, nontender, nondistended. Bowel sounds are positive. MUSCULOSKELETAL: No cyanosis or clubbing. There is no pitting in the bilateral lower extremities. NEUROLOGIC: Grossly nonfocal. LABORATORY DATA: WBC 16.2 and gently up trending, hemoglobin 8.6. Platelets 390,000 and gently up t rending. INR 1.2. Chloride 126 and up trending, sodium 153 and slightly improving. Basic metabolic profile is otherwise unremarkable. Creatinine 0.92. ASSESSMENT: 1. Acute hypoxic respiratory failure. 2. Septic shock. 3. Urinary tract infection secondary to Escherichia coli. 4. Hypernatremia, improving. 5. Acute kidney injury, resolved. 6. Metabolic encephalopathy, resolved. PLAN: We will continue to watch her ins and outs. At the end of her spontaneous breathing trial, if she meets criteria, extubation will be considered. This will be done extraordinarily cautiously, sh ruy does not have an air leak. If she fails extubation this time around, she will require reintubation , and tracheostomy as this would be her second failure. Critical care time: 30 minutes.
[2017-08-12] MEDS: Micafungin 100 MG in Sodium Chloride 0.9% 100 ML IVPB SCH (11:26)
--- NOTE | 2017-08-12 16:20 | PDOC.PN ---
- Subjective Encounter Start Date: 08/12/17 Encounter Start Time: 10:00 Patient seen and examined. No new complaints. No overnight events. Extubated. No CP/SOB. - Objective Resuscitation Status: Resuscitation Status FULL:Full Resuscitation MAR Reviewed: Yes Vital Signs & Weight: Vital Signs (12 hours) Temp Pulse Pulse Resp BP BP Pulse Ox 08/12/17 15:00 98.3 F 08/12/17 14:51 84 134/66 08/12/17 12:56 59 L 20 99 08/12/17 11:00 98.4 F 08/12/17 09:05 98.6 F 82 19 100 08/12/17 07:57 23 H 08/12/17 07:51 54 L 159/80 H 08/12/17 07:50 53 L 24 H 93 L 08/12/17 07:00 98.5 F Pulse Ox Pulse Ox 08/12/17 15:00 08/12/17 14:51 98 96 08/12/17 12:56 08/12/17 11:00 08/12/17 09:05 08/12/17 07:57 08/12/17 07:51 08/12/17 07:50 08/12/17 07:00 Weight Admit Weight 187 lb Weight 185 lb 10.067 oz Most Recent Monitor Data Heart Rate from ECG 65 NIBP 129/62 NIBP BP-Mean 80 Respiration from ECG 22 SpO2 99 I&O: 08/11/17 08/12/17 08/13/17 06:59 06:59 06:59 Intake Total 1146 2224 530 Output Total 2260 1410 1845 Balance -1114 814 -1315 Result Diagrams: 08/12/17 04:20 08/12/17 03:28 Additional Labs: Accuchecks 08/12/17 08/11/17 03:32 23:17 POC Glucose 136 H 118 H Phys Exam - Physical Examination Constitutional: NAD Respiratory: no wheezing, no rhonchi Scat rales at bases, Symmetrical Cardiovascular: RRR, no rub no heaves/pulsations Gastrointestinal: soft, non-tender, no distention, positive bowel sounds Musculoskeletal: no edema Neurological: non-focal, moves all 4 limbs Psychiatric: normal affect, A&O x 3 Dx/Plan - Plan DVT proph w/lovenox, DVT proph w/SCDs IMPRESSION: 1. Acute hypoxic resp failure - extubated 2. Severe Sepsis/Septic shock - improving 3. ?HCAP - on Atbx 4. E coli UTI - on Atbx 5. RENITA/CKD 2 6. Toxic Metabolic Encephalopathy / h/o HTN/Anxiety 7. Obesity BMI 31.9 PLAN: * on Cefepime and Micafungin * IV fluids per Critical care * Critical care following * Cont to monitor * AM labs * Cont other meds as below Review of Systems - Review of Systems Respiratory: negative: Cough, Dry, Shortness of Breath, Hemoptysis, SOB with Excertion, Pleuritic Pain, Sputum, Wheezing Cardiovascular: negative: chest pain, palpitations, orthopnea, paroxysmal nocturnal dyspnea, edema, light headedness - Medications/Allergies Allergies/Adverse Reactions: Allergies Allergy/AdvReac Type Severity Reaction Status Date / Time No Known Allergies Allergy Verified 08/02/17 16:02 Medications: Current Medications Acetaminophen (Tylenol) 1,000 mg PO Q6H PRN PRN Reason: Headache/Fever or Mild Pain Last Admin: 08/09/17 13:08 Dose: 1,000 mg Albuterol/Ipratropium (Duoneb) 3 ml NEB [id number] [facility] Last Admin: 08/12/17 12:56 Dose: 3 ml Clonidine (Fvxfadrr-Eqg-1) 0.2 mg TD Ferreira@2100 [facility] Last Admin: 08/10/17 20:37 Dose: 0.2 mg Dextrose/Water (Dextrose 50%) 25 gm IVP PRN PRN PRN Reason: HYPOGLYCEMIA PROTOCOL Famotidine (Pepcid) 20 mg PER TUBE BID [facility] Last Admin: 08/12/17 09:16 Dose: 20 mg Furosemide (Lasix) 20 mg SLOW IVP 0600 [facility] Glucagon (Glucagon) 1 mg IM PRN PRN PRN Reason: HYPOGLYCEMIA PROTOCOL Dextrose/Water (D5w) 1,000 mls @ 0 mls/hr IV INF PRN; As Directed PRN Reason: HYPOGLYCEMIA PROTOCOL Dexmedetomidine HCl 400 mcg/ (Sodium Chloride) 100 mls @ 0 mls/hr IVPB INF [facility] ; Titrate PRN Reason: Protocol Last Admin: 08/11/17 21:58 Dose: 100 mls Sodium Chloride 38.44 meq/ (Sterile Water) 1,000 mls @ 75 mls/hr IV INF [facility] Last Admin: 08/12/17 15:03 Dose: 1,000 mls Micafungin Sodium 100 mg/ (Sodium Chloride) 100 mls @ 100 mls/hr IVPB 1100 [facility] Stop: 08/17/17 11:59 Last Admin: 08/12/17 11:26 Dose: 100 mls Miscellaneous Medication (Phos-Nak) 1 pkt PO TIDPRN PRN PRN Reason: FOR PHOS LEVEL 1.0 - 1.8 Miscellaneous Medication (Phos-Nak) 2 pkt PO TIDPRN PRN PRN Reason: FOR PHOS LEVEL 0.5 - 1.0 Ccu Electrolyte (Replacement Protocol) 0 each FS PRN PRN PRN Reason: FOR ELECTROLYTE REPLACEMENT Ondansetron HCl (Zofran Odt) 4 mg PO Q6H PRN PRN Reason: Nausea/Vomiting Ondansetron HCl (Zofran) 4 mg IVP Q6H PRN PRN Reason: Nausea/Vomiting Last Admin: 08/02/17 18:48 Dose: 4 mg Potassium Chloride (K-Dur) 40 meq PO ASDIR PRN PRN Reason: FOR SERUM K+ 2.5 - 3.5 Potassium Chloride (Klor-Con) 40 meq PER TUBE ASDIR PRN PRN Reason: FOR SERUM K+ 2.5-3.5 Sodium Chloride (Flush - Normal Saline) 10 ml IVF Q12HR [facility] Last Admin: 08/12/17 09:17 Dose: 10 ml Sodium Chloride (Flush - Normal Saline) 10 ml IVF PRN PRN PRN Reason: Saline Flush Throat Lozenges (Cepastat Lozenges) 1 tatiana PO Q2H PRN PRN Reason: Sore Throat
[2017-08-12] MEDS: Enoxaparin Sodium 40 MG/0.4 ML SYRINGE SC SCH (20:35)
[2017-08-13] MEDS: Sodium Chloride 38.44 MEQ in Sterile Water Injection 990.39 ML IV SCH ×3 (03:34→23:03)
[2017-08-13 04:30] LABS: #Basophils 0.1 thou/uL (0.0-0.2); #Eosinphils 0.2 thou/uL (0.0-0.7); #Lymphocytes 3.4 thou/uL (1.20-3.40); #Monocytes 0.6 thou/uL (0.11-0.59); #Neutrophils 12.4 thou/uL (1.40-6.50); %Basophils 0.4 % (0.0-1.0); %Lymphocytes 20.4 % (21.0-51.0); %Monocytes 3.6 % (0.0-10.0); Hematocrit 27.3 % (36.0-47.0); Mean Platelet Volume 7.9 fL (7.4-10.4); Red Blood Cell (RBC) Count 2.91 mill/uL (4.20-5.40); White Blood Cell (WBC) Count 16.6 thou/uL (4.8-10.8)
[2017-08-13 04:49] LABS: Anion Gap 12 mmol/L (10-20); BUN (Urea Nitrogen) 41 mg/dL (7.0-18.7); Calc. Creatinine Clearance 120 mL/min (70-130); Calcium 8.1 mg/dL (7.8-10.44); Carbon Dioxide 20 mmol/L (22-29); Chloride 117 mmol/L (98-107); Estimated GFR-MDRD 80; Magnesium 1.4 mg/dL (1.6-2.6); Phosphorus 3.7 mg/dL (2.3-4.7)
[2017-08-13] MEDS ORDERED: Furosemide 20 MG/2 ML VIAL SLOW IVP SCH (06:00)
[2017-08-13] MEDS: Famotidine 20 MG TAB PER TUBE SCH (08:51)
--- NOTE | 2017-08-13 10:42 | PRG ---
DATE OF SERVICE: 08/13/2017 SERVICE: Pulmonary Medicine. INTERVAL HISTORY: The patient is doing absolutely fantastic from a respiratory standpoint. Since ex tubation yesterday, she had no upper airway issues. She denies any current fevers, chills, nausea, v omiting or diarrhea. Otherwise, there has been no interval change to her condition. She is breathin g very comfortably this morning and has no specific complaints. PHYSICAL EXAMINATION: VITAL SIGNS: Afebrile, pulse 81, blood pressure 118/65, respirations 14, and saturation 95% on room air. GENERAL: The patient is awake and alert, in no apparent distress. LUNGS: Decent air entry. There is no prolonged expiratory phase, wheezing, rhonchi or crackles. HEART: Normal rate, regular. ABDOMEN: Soft, nontender, nondistended. Bowel sounds are positive. MUSCULOSKELETAL: No cyanosis or clubbing. No pitting in the bilateral lower extremities. NEUROLOGIC: Grossly nonfocal. LABORATORY DATA: WBC 16.6, hemoglobin 8.7, and platelets 487,000. Lymphocyte count is responding. Absolute neutrophil count is dropping. INR 1.2. Potassium 3.1. Sodium 146, chloride 117. Basic me tabolic profile is otherwise unremarkable. Magnesium is 1.4. ASSESSMENT: 1. Acute hypoxic respiratory failure. 2. Septic shock, resolved. 3. Urinary tract infection secondary to Escherichia coli. 4. Hypernatremia, improving. 5. Acute kidney injury, resolved. 6. Metabolic encephalopathy, resolved. PLAN: I will replace magnesium and potassium today. Medina catheter in the IJ will be removed. We w ill order occupational therapy, Accu-Cheks will be discontinued. Repeat magnesium and potassium will be done tomorrow. We will continue focusing efforts on mobilizing her. If she does well over the n ext 24-48 hours, she can be considered for transition to the floor.
[2017-08-13] MEDS ORDERED: Magnesium 2 GM/NS 0.9% 100 ML 2 GM in Premix Bag 1 BAG IVPB SCH (10:45)
[2017-08-13] MEDS: Micafungin 100 MG in Sodium Chloride 0.9% 100 ML IVPB SCH (11:46)
[2017-08-13] MEDS: Acetaminophen 500 MG TAB PO PRN (16:27)
[2017-08-13] MEDS ORDERED: cloNIDine 0.1 MG TAB PO PRN (16:49)
[2017-08-13] MEDS ORDERED: Diabetic Tussin 200 MG/10 ML UDCUP PO PRN (16:50)
--- NOTE | 2017-08-13 16:53 | PDOC.PN ---
- Subjective Encounter Start Date: 08/13/17 Encounter Start Time: 13:00 Patient seen and examined. No new complaints. No overnight events - Objective Resuscitation Status: Resuscitation Status FULL:Full Resuscitation MAR Reviewed: Yes Vital Signs & Weight: Vital Signs (12 hours) Temp Pulse Pulse Pulse Resp BP BP 08/13/17 16:00 98.4 F 08/13/17 13:50 75 16 08/13/17 12:00 98.3 F 08/13/17 10:25 65 73 134/74 125/79 08/13/17 08:00 98.2 F 77 20 08/13/17 07:47 08/13/17 07:45 64 16 Pulse Ox Pulse Ox Pulse Ox 08/13/17 16:00 08/13/17 13:50 99 08/13/17 12:00 08/13/17 10:25 91 L 94 L 08/13/17 08:00 100 08/13/17 07:47 99 08/13/17 07:45 99 Weight Admit Weight 195 lb 1.745 oz Weight 187 lb 9.814 oz Most Recent Monitor Data Heart Rate from ECG 68 NIBP 115/41 NIBP BP-Mean 81 Respiration from ECG 30 SpO2 94 I&O: 08/12/17 08/13/17 08/14/17 06:59 06:59 06:59 Intake Total 2224 4991 200 Output Total 1410 3210 3175 Balance 814 8061 -2975 Result Diagrams: 08/13/17 03:30 08/13/17 03:30 Additional Labs: Accuchecks 08/13/17 08/12/17 05:56 21:03 POC Glucose 88 79 EKG Reviewed by me: Yes (Tele SR) Phys Exam - Physical Examination Constitutional: NAD Respiratory: no wheezing, no rhonchi Cardiovascular: RRR, no rub Gastrointestinal: soft, non-tender, positive bowel sounds Musculoskeletal: no edema Neurological: moves all 4 limbs Dx/Plan - Plan continue antibiotics, PT/OT, respiratory therapy, DVT proph w/lovenox, DVT proph w/SCDs IMPRESSION: 1. Acute hypoxic resp failure - extubated 08/12 2. Severe Sepsis/Septic shock - Off Cefepime. On Micafungin 3. ?HCAP 4. E coli UTI 5. RENITA/CKD 2 - improved 6. Toxic Metabolic Encephalopathy - resolved / h/o HTN/Anxiety 7. Obesity BMI 31.9 8. Hypomagnessemia PLAN: * Add Clonidine PRN * Clonidine patch dced * Home BP meds restarted * Critical care following * Cont to monitor * AM labs * Cont other meds as below * Received 2 gm Mg IVPB Review of Systems - Review of Systems Respiratory: negative: Cough, Dry, Shortness of Breath, Hemoptysis, SOB with Excertion, Pleuritic Pain, Sputum, Wheezing Cardiovascular: negative: chest pain, palpitations, orthopnea, paroxysmal nocturnal dyspnea, edema, light headedness - Medications/Allergies Allergies/Adverse Reactions: Allergies Allergy/AdvReac Type Severity Reaction Status Date / Time No Known Allergies Allergy Verified 08/02/17 16:02 Medications: Current Medications Acetaminophen (Tylenol) 1,000 mg PO Q6H PRN PRN Reason: Headache/Fever or Mild Pain Last Admin: 08/13/17 16:27 Dose: 1,000 mg Albuterol/Ipratropium (Duoneb) 3 ml NEB [id number] [facility] Last Admin: 08/13/17 13:50 Dose: 3 ml Clonidine (Catapres) 0.1 mg PO Q4H PRN PRN Reason: Systolic BP > 180 Enoxaparin Sodium (Lovenox) 40 mg SC 2100 [facility] Last Admin: 08/12/17 20:35 Dose: 40 mg Glucagon (Glucagon) 1 mg IM PRN PRN PRN Reason: HYPOGLYCEMIA PROTOCOL Guaifenesin (Robitussin Sf) 200 mg PO Q4H PRN PRN Reason: Cough Lisinopril/HCTZ (Prinizide 20-25) 1 tab PO DAILY [facility] Micafungin Sodium 100 mg/ (Sodium Chloride) 100 mls @ 100 mls/hr IVPB 1100 [facility] Stop: 08/17/17 11:59 Last Admin: 08/13/17 11:46 Dose: 100 mls Sodium Chloride 38.44 meq/ (Sterile Water) 1,000 mls @ 50 mls/hr IV .Q20H [facility] Last Admin: 08/13/17 11:41 Dose: Not Given Ondansetron HCl (Zofran Odt) 4 mg PO Q6H PRN PRN Reason: Nausea/Vomiting Ondansetron HCl (Zofran) 4 mg IVP Q6H PRN PRN Reason: Nausea/Vomiting Last Admin: 08/02/17 18:48 Dose: 4 mg Sodium Chloride (Flush - Normal Saline) 10 ml IVF Q12HR [facility] Last Admin: 08/13/17 08:51 Dose: 10 ml Sodium Chloride (Flush - Normal Saline) 10 ml IVF PRN PRN PRN Reason: Saline Flush Throat Lozenges (Cepastat Lozenges) 1 tatiana PO Q2H PRN PRN Reason: Sore Throat
[2017-08-13] MEDS: Enoxaparin Sodium 40 MG/0.4 ML SYRINGE SC SCH (20:50)
[2017-08-14] MEDS: Acetaminophen 500 MG TAB PO PRN (01:54)
[2017-08-14 04:36] LABS: #Eosinphils 0.2 thou/uL (0.0-0.7); #Lymphocytes 3.4 thou/uL (1.20-3.40); #Monocytes 0.7 thou/uL (0.11-0.59); #Neutrophils 10.2 thou/uL (1.40-6.50); %Basophils 0.3 % (0.0-1.0); %Eosinophils 1.7 % (0.0-10.0); %Lymphocytes 23.2 % (21.0-51.0); %Monocytes 4.8 % (0.0-10.0); Hematocrit 30.2 % (36.0-47.0); Mean Platelet Volume 7.2 fL (7.4-10.4); Red Blood Cell (RBC) Count 3.22 mill/uL (4.20-5.40); White Blood Cell (WBC) Count 14.5 thou/uL (4.8-10.8)
[2017-08-14 05:00] LABS: Anion Gap 9 mmol/L (10-20); BUN (Urea Nitrogen) 27 mg/dL (7.0-18.7); Calc. Creatinine Clearance 108 mL/min (70-130); Calcium 8.4 mg/dL (7.8-10.44); Carbon Dioxide 19 mmol/L (22-29); Chloride 114 mmol/L (98-107); Estimated GFR-MDRD 80; Magnesium 1.7 mg/dL (1.6-2.6)
[2017-08-14] MEDS: Lisinopril/Hydrochlorothiazide 20/25 mg Tablet PO SCH (08:49)
[2017-08-14] MEDS: Micafungin 100 MG in Sodium Chloride 0.9% 100 ML IVPB SCH (11:48)
--- NOTE | 2017-08-14 13:34 | PRG ---
DATE OF SERVICE: 08/14/2017 SERVICE: Pulmonary Medicine. INTERVAL HISTORY: The patient is doing outstanding from a respiratory standpoint. She denies any cu rrent fevers, chills, nausea, vomiting or chest discomfort. Otherwise, her strength is improving day by day. She is breathing very comfortably. She has no specific complaints. There were no overnigh t events. She is having difficulty with her breathing. PHYSICAL EXAMINATION: VITAL SIGNS: Afebrile, pulse 75, blood pressure 129/69, respirations 24, saturation 100% on room air . GENERAL: The patient is awake, alert, in no apparent distress. LUNGS: Excellent air entry. There are no crackles today. HEART: Normal rate, regular. ABDOMEN: Soft, nontender, nondistended, bowel sounds positive. MUSCULOSKELETAL: No cyanosis or clubbing. No pitting in the bilateral lower extremities. NEUROLOGIC: Grossly nonfocal. LABORATORY DATA: WBC 14.5 and down trending once again, hemoglobin 9.8 and stable. Platelets 553,00 0. INR 1.2. Chloride 114, sodium 138. Basic metabolic profile is otherwise unremarkable. BUN is d own trending. Magnesium 1.7. Respiratory culture is growing yeast species. C. diff antigen toxin i s negative. Originally urine culture was growing E. coli which was sensitive. ASSESSMENT: 1. Acute hypoxic respiratory failure, resolved. 2. Septic shock, resolved. 3. Urinary tract infection secondary to Escherichia coli, status post full course of antibiotics. 4. Hypernatremia, resolved. 5. Acute kidney injury, resolved. 6. Metabolic encephalopathy, resolved. 7. Deconditioning secondary to protracted ICU course. PLAN: The patient is stable for transition from the ICU to the medical unit. Magnesium will be repl aced today. We will stop her IV fluids and her Lasix. From my perspective, she is stable for transi tion out of the hospital. Pulmonary will continue to follow while she remains in the ICU.
--- NOTE | 2017-08-14 19:52 | PDOC.PN ---
- Subjective Encounter Start Date: 08/14/17 Encounter Start Time: 09:30 Patient seen and examined. No new complaints. No overnight events - Objective Resuscitation Status: Resuscitation Status FULL:Full Resuscitation MAR Reviewed: Yes Vital Signs & Weight: Vital Signs (12 hours) Temp Pulse Resp Pulse Ox 08/14/17 14:00 98.2 F 08/14/17 13:45 98.2 F 78 16 96 08/14/17 13:18 60 14 08/14/17 11:57 98.2 F 08/14/17 08:49 70 08/14/17 08:00 97.9 F 70 24 H 100 Weight Admit Weight 195 lb 1.745 oz Weight 166 lb 10.711 oz Most Recent Monitor Data Heart Rate from ECG 82 NIBP 128/76 NIBP BP-Mean 95 Respiration from ECG 24 SpO2 98 I&O: 08/13/17 08/14/17 08/15/17 06:59 06:59 06:59 Intake Total 4991 2613 777 Output Total 3210 4225 400 Balance 1781 -1612 377 Result Diagrams: 08/15/17 04:14 08/15/17 04:14 Additional Labs: Accuchecks 08/12/17 11:17 POC Glucose 97 Phys Exam - Physical Examination Constitutional: NAD Respiratory: no wheezing, no rhonchi Cardiovascular: RRR, no rub Gastrointestinal: soft, non-tender, positive bowel sounds Musculoskeletal: no edema Neurological: non-focal, moves all 4 limbs Psychiatric: A&O x 3 Dx/Plan - Plan DVT proph w/lovenox, DVT proph w/SCDs IMPRESSION: 1. Acute hypoxic resp failure - extubated 08/12 2. Severe Sepsis/Septic shock - Off Cefepime. On Micafungin 3. ?HCAP 4. E coli UTI 5. RENITA/CKD 2 - improved 6. Toxic Metabolic Encephalopathy - resolved / h/o HTN/Anxiety 7. Obesity BMI 31.9 8. Hypomagnessemia PLAN: * Cont to monitor * Cont current meds as below * Transfer to medical * PT/OT Review of Systems - Review of Systems Respiratory: negative: Cough, Dry, Shortness of Breath, Hemoptysis, SOB with Excertion, Pleuritic Pain, Sputum, Wheezing Cardiovascular: negative: chest pain, palpitations, orthopnea, paroxysmal nocturnal dyspnea, edema, light headedness - Medications/Allergies Allergies/Adverse Reactions: Allergies Allergy/AdvReac Type Severity Reaction Status Date / Time No Known Allergies Allergy Verified 08/02/17 16:02 Medications: Current Medications Acetaminophen (Tylenol) 1,000 mg PO Q6H PRN PRN Reason: Headache/Fever or Mild Pain Last Admin: 08/14/17 01:54 Dose: 1,000 mg Albuterol/Ipratropium (Duoneb) 3 ml NEB PRN PRN PRN Reason: SOB &/or Wheezing Clonidine (Catapres) 0.1 mg PO Q4H PRN PRN Reason: Systolic BP > 180 Enoxaparin Sodium (Lovenox) 40 mg SC 2100 [facility] Last Admin: 08/13/17 20:50 Dose: 40 mg Guaifenesin (Robitussin Sf) 200 mg PO Q4H PRN PRN Reason: Cough Lisinopril/HCTZ (Prinizide 20-25) 1 tab PO DAILY [facility] Last Admin: 08/14/17 08:49 Dose: Not Given Micafungin Sodium 100 mg/ (Sodium Chloride) 100 mls @ 100 mls/hr IVPB 1100 [facility] Stop: 08/17/17 11:59 Last Admin: 08/14/17 11:48 Dose: 100 mls Ondansetron HCl (Zofran Odt) 4 mg PO Q6H PRN PRN Reason: Nausea/Vomiting Ondansetron HCl (Zofran) 4 mg IVP Q6H PRN PRN Reason: Nausea/Vomiting Last Admin: 08/02/17 18:48 Dose: 4 mg Sodium Chloride (Flush - Normal Saline) 10 ml IVF Q12HR [facility] Last Admin: 08/14/17 08:49 Dose: 10 ml Sodium Chloride (Flush - Normal Saline) 10 ml IVF PRN PRN PRN Reason: Saline Flush Throat Lozenges (Cepastat Lozenges) 1 tatiana PO Q2H PRN PRN Reason: Sore Throat
[2017-08-14] MEDS: Enoxaparin Sodium 40 MG/0.4 ML SYRINGE SC SCH (20:45)
[2017-08-15 04:42] VITALS: TEMP 98.5
[2017-08-15 05:53] LABS: #Basophils 0.1 thou/uL (0.0-0.2); #Eosinphils 0.3 thou/uL (0.0-0.7); #Monocytes 0.7 thou/uL (0.11-0.59); #Neutrophils 8.1 thou/uL (1.40-6.50); %Basophils 0.4 % (0.0-1.0); %Eosinophils 2.6 % (0.0-10.0); %Lymphocytes 24.4 % (21.0-51.0); %Monocytes 5.8 % (0.0-10.0); Hematocrit 32.6 % (36.0-47.0); Mean Platelet Volume 7.5 fL (7.4-10.4); Red Blood Cell (RBC) Count 3.44 mill/uL (4.20-5.40); White Blood Cell (WBC) Count 12.1 thou/uL (4.8-10.8)
[2017-08-15 06:22] LABS: Anion Gap 14 mmol/L (10-20); BUN (Urea Nitrogen) 20 mg/dL (7.0-18.7); Calc. Creatinine Clearance 115 mL/min (70-130); Calcium 8.7 mg/dL (7.8-10.44); Carbon Dioxide 18 mmol/L (22-29); Chloride 110 mmol/L (98-107); Estimated GFR-MDRD 86
[2017-08-15 07:52] VITALS: BP 117/81
[2017-08-15 09:02] VITALS: BMI 31.6
[2017-08-15] MEDS: Lisinopril/Hydrochlorothiazide 20/25 mg Tablet PO SCH (11:04)
[2017-08-15] MEDS: Micafungin 100 MG in Sodium Chloride 0.9% 100 ML IVPB SCH (11:22)
--- NOTE | 2017-08-16 08:23 | DIS ---
DATE OF ADMISSION: 08/02/2017 DATE OF DISCHARGE: 08/15/2017 FOLLOWUP: Follow up with primary care physician at [facility] in [place] ([facility]). ALLERGIES: Patient denies any drug allergies. DISCHARGE MEDICATION: Lisinopril/HCTZ 20/25 daily. INPATIENT MANAGER OUTPATIENT: Pulmonary, Dr. Canchola. DIAGNOSTIC TESTS: 1. WBC on admission was 14.2, at discharge 12.1, maximum WBC count was 25.2. Patient had 19% bandem ia on admission, at discharge was 2% bandemia. 2. Potassium on admission 2.9, at discharge 3.9, lactic acid maximum was 4.2. BNP 213, magnesium 1. 3, at discharge 1.7. 3. LFTs on admission showed total bilirubin 0.7 with AST 144, ALT 137, and alkaline phosphatase 214. 4. Urinalysis showed 21-50 wbc's with 4+ bacteria. 5. Urine culture showed E. coli sensitive to ceftriaxone. Respiratory viral panel on admission was negative. Blood cultures were negative. Respiratory culture on 08/04/2017 showed moderate amount of yeast. 6. Chest x-ray on admission showed bibasilar densities indicating pneumonia versus pleural fluid wit h adjacent atelectasis. 7. Renal ultrasound on admission was negative for hydronephrosis. There was a questionable right re nal cyst which was incompletely assessed. Follow up in 3-6 months was recommended. Primary care y sician advised to follow. 8. Echocardiogram showed left ventricular ejection fraction of 55%-60% with normal diastolic dysfunc tion. INPATIENT PROCEDURES: 1. On 08/03/2017, patient underwent emergent endotracheal intubation. 2. On 08/05/2017, patient underwent right-sided radial artery catheter placement. BRIEF HOSPITAL COURSE: Patient is a 47-year-old female with hypertension who presented to the emerge ncy room with cough, shortness of breath, and generalized weakness. Please refer to the history and physical dated 08/02/2017 for further details. The patient was admitted to the Intensive Care Unit secondary to acute hypoxic respiratory failure al leonor with severe sepsis and acute kidney injury. Her creatinine on admission was 4.89. She was start ed on IV fluids with empiric antibiotics. She required intubation with central line placement during the ICU stay. After an extensive ICU stay, patient was extubated on 08/12/2017. She developed sign ificant stridor with respiratory distress requiring reintubation. After IV steroids, she was extubat ed and did well. She was then transferred to the medical floor. Over the last 48 hours, patient has been stable, ambulating in the hallway with some assistance. She has been cleared by Pulmonology fo r discharge. An outpatient physical therapy was recommended. She appears stable for discharge. Fal l precaution with 24-hour supervision was recommended. She was advised to return to the emergency ro om should she develops any new symptoms. FINAL DIAGNOSES: 1. Acute hypoxic respiratory failure requiring mechanical ventilation. 2. Severe sepsis/septic shock, completed antibiotics. 3. Healthcare associated pneumonia. 4. Escherichia coli urinary tract infection. 5. Acute kidney injury on chronic kidney disease stage 2 secondary to sepsis, resolved. 6. Toxic metabolic encephalopathy, resolved. 7. Hypertension. 8. Anxiety. 9. Hypomagnesemia, corrected. 10. Obesity with body mass index of 31.9. 11. Questionable right renal cyst. Repeat ultrasound in 3-6 months is recommended. Primary care ph ysician is advised to follow. 12. Metabolic acidosis/lactic acidosis. 13. Abnormal liver function tests, probably secondary to sepsis. Repeat labs after 1 week is recomm ended. 14. Hypokalemia, corrected. 15. Hypomagnesemia. 16. Mild protein calorie malnutrition. 17. Mild coagulopathy secondary to sepsis. 18. Chronic anemia. Primary care physician is advised to follow. Plan of care was discussed with the patient in detail. She stated understanding. Total time coordinating the discharge of this patient was 38 minutes.
== END 2017-08-15 15:45 | disposition home or self-care (01) | DRG 870 ==
LOC: ERS 13:20 → CCU 17:29 → T4-A 08-14 18:46
PROVIDERS: ADMIT Family Medicine; ATTEND Family Medicine
PROC: 02H633Z Insertion of Infusion Device into Right Atrium, Percutaneous Approach (ICD-10-PCS; 2017-08-02)
PROC: 5A09357 Assistance with Respiratory Ventilation, Less than 24 Consecutive Hours, Continuous Positive Airway Pressure (ICD-10-PCS; 2017-08-02)
PROC: 5A1955Z Respiratory Ventilation, Greater than 96 Consecutive Hours (ICD-10-PCS; 2017-08-03)
PROC: 0BH17EZ Insertion of Endotracheal Airway into Trachea, Via Natural or Artificial Opening (ICD-10-PCS; 2017-08-03)
PROC: 03HY33Z Insertion of Infusion Device into Upper Artery, Percutaneous Approach (ICD-10-PCS; principal; 2017-08-04)
PROC: 0BH17EZ Insertion of Endotracheal Airway into Trachea, Via Natural or Artificial Opening (ICD-10-PCS; 2017-08-11)
PROC: 5A1935Z Respiratory Ventilation, Less than 24 Consecutive Hours (ICD-10-PCS; 2017-08-11)
DX: A41.9 Sepsis, unspecified organism (principal); J96.01 Acute respiratory failure with hypoxia; R65.21 Severe sepsis with septic shock; J18.9 Pneumonia, unspecified organism; G93.41 Metabolic encephalopathy; N17.9 Acute kidney failure, unspecified; N39.0 Urinary tract infection, site not specified; E87.0 Hyperosmolality and hypernatremia; E87.2 Acidosis; E44.1 Mild protein-calorie malnutrition; I10 Essential (primary) hypertension; F41.9 Anxiety disorder, unspecified; W18.30XA Fall on same level, unspecified, initial encounter; Y92.013 Bedroom of single-family (private) house as the place of occurrence of the external cause; E87.6 Hypokalemia; D64.9 Anemia, unspecified; B96.20 Unspecified Escherichia coli [E. coli] as the cause of diseases classified elsewhere; Y95 Nosocomial condition; N18.2 Chronic kidney disease, stage 2 (mild); E83.42 Hypomagnesemia; E66.9 Obesity, unspecified; Z68.31 Body mass index [BMI] 31.0-31.9, adult; N28.1 Cyst of kidney, acquired
CPT/HCPCS: 36415; 36416; 36556; 71010; 76770; 80048; 80053; 80076; 81003; 81015; 82533; 82553; 82570; 82805; 83605; 83690; 83735; 83880; 84100; 84300; 84443; 84484; 85007; 85025; 85027; 85610; 87040; 87070; 87077; 87086; 87186; 87205; 87324; 87449; 87633; 93005; 93306; 94002; 94003; 94640; 94660; 94760; 96361; 96365; 96366; 96368; 96375; A4216; A4217; C1751; G8978-GP-CK; G8979-GP-CI; G8981-GP-CN; G8982-GP-CK; G8987-GO-CJ; G8988-GO-CI; J0171; J0456; J0692; J0696; J1100; J1200; J1644; J1650; J1720; J1940; J1956; J2060; J2248; J2250; J2270; J2405; J2704; J2765; J2920; J3010; J3475; J3480; J7050; J7070; J7620; S0028

== ENCOUNTER 2017-11-23 19:52 | Emergency (ER) | payer OTHER, SELFPAY ==
[2017-11-23] MEDS ORDERED: Dexamethasone 4 mg/ml Vial ONE (20:12)
[2017-11-23] MEDS ORDERED: cefTRIAXone\\ROCEPHIN 500 MG VIAL ONE (20:12)
--- NOTE | 2017-11-23 21:08 | RAD ---
AP CHEST: Indication: Cough for three weeks with productive green sputum. Comparison: 08-10-17 FINDINGS: Lungs are clear. Cardiomediastinal silhouette is within normal limits. No acute osseous abnormality i s evident. IMPRESSION: No acute cardiopulmonary abnormality. POS: [facility]
== END 2017-11-23 20:53 | disposition home or self-care (01) ==
LOC: ERS 19:52
DX: J20.9 Acute bronchitis, unspecified (principal); I10 Essential (primary) hypertension; F41.9 Anxiety disorder, unspecified; Z79.899 Other long term (current) drug therapy
CPT/HCPCS: 71045; 96372; J0696; J1100

== ENCOUNTER 2018-05-03 14:29 | Emergency (ER) | payer OTHER, SELFPAY ==
[2018-05-03] MEDS ORDERED: Dexamethasone 4 mg/ml Vial ONE (15:29)
[2018-05-03] MEDS ORDERED: Ketorolac Tromethamine 60 MG/2 ML VIAL ONE (15:29)
[2018-05-03] MEDS ORDERED: Bicillin LA 1.2 MILLION UNITS/2 ML SYRINGE ONE (15:30)
== END 2018-05-03 17:56 | disposition home or self-care (01) ==
LOC: ERS 14:29
DX: J02.0 Streptococcal pharyngitis (principal); I10 Essential (primary) hypertension; F41.9 Anxiety disorder, unspecified; Z79.899 Other long term (current) drug therapy
CPT/HCPCS: 96372; J0561; J1100; J1885

== ENCOUNTER 2024-06-01 12:06 | Outpatient (CLI) | payer OTHER | END 2024-06-01 12:07 | disposition home or self-care (01) | LOC: BICMAMMO 12:06 | PROVIDERS: ATTEND Nurse Practitioner Family | DX: Z12.31 Encounter for screening mammogram for malignant neoplasm of breast (principal); N63.21 Unspecified lump in the left breast, upper outer quadrant; Z80.3 Family history of malignant neoplasm of breast | CPT/HCPCS: 77063; 77067 ==

== ENCOUNTER 2024-06-08 08:43 | Outpatient (CLI) | payer OTHER | END 2024-06-08 08:44 | disposition home or self-care (01) | LOC: BICMAMMO 08:43 | PROVIDERS: ATTEND Nurse Practitioner Family | DX: N63.21 Unspecified lump in the left breast, upper outer quadrant (principal) | CPT/HCPCS: G0279 ==